=== PATIENT | female | born 1960 | race Caucasian/White ===

== ENCOUNTER 2019-03-22 10:04 | Outpatient (REF) | payer OTHER, SELFPAY ==
[2019-03-22 13:01] LABS: ALT 19 U/L (12-78); AST 23 U/L (15-37); Albumin 3.8 g/dL (3.4-5.0); Alkaline Phosphatase 87 U/L (46-116); Anion Gap 11.4 mmol/L (3-11); BUN 15 mg/dL (7-18); Bilirubin, Total 0.3 mg/dL (0.2-1.0); C-Reactive Protein 0.24 mg/dL (0.0-0.3); CO2 25.6 mmol/L (21.0-32.0); CREATININE 0.81 mg/dL (0.55-1.02); Chloride 106 mmol/L (98-107); Glucose 90 mg/dL (70-100); Potassium 4.2 mmol/L (3.5-5.1); Sodium 143 mmol/L (136-145); TSH (W/Ref FT4) 9.73 uIU/mL (0.358-3.74); Total Protein 7.2 g/dL (6.4-8.2)
[2019-03-22 13:20] LABS: FREE T4 0.82 ng/dL (0.76-1.46)
[2019-03-22 13:54] LABS: ESR 20 MM/HR (0-30)
[2019-03-22 14:22] LABS: Calculated LDL 164; Cholesterol 278 mg/dL (50-200); HDL Cholesterol 58 mg/dL (40-60); Triglyceride 280 mg/dL (30-150)
[2019-03-23 09:29] LABS: Rheumatoid Factor 14 IU/mL (<12.5)
[2019-03-23 14:58] LABS: ANA Interpretation Negative (NEGAT)
== END 2019-03-22 10:24 ==
LOC: NCHCN 10:04
PROVIDERS: PCP Nurse Practitioner; Visit Provider Nurse Practitioner
DX: M25.50 Pain in unspecified joint (principal); Z13.29 Encounter for screening for other suspected endocrine disorder; Z13.89 Encounter for screening for other disorder
CPT/HCPCS: 80053; 80061; 83721; 85652; 84439; 84443; 86038; 86140; 86431

== ENCOUNTER 2019-04-01 01:43 | Outpatient (CLI) | payer OTHER, SELFPAY ==
--- NOTE | 2019-04-01 14:00 | DI.MAMMO_ITS ---
SYMPTOMS/DIAGNOSIS: SCREENING, Z12.39 BILATERAL SCREENING MAMMOGRAM: Mammograms were interpreted according to the usual protocol including computer analysis with CAD system, tomosynthesis and C view imaging. The patient had previous exams in 2007, which are no longer available for comparison. The breasts are composed of scattered fibroglandular densities, breast density category B. No suspicious masses or suspicious microcalcifications are seen. IMPRESSION: Category 1, negative mammogram. Yearly screening mammography is recommended. [facility] ASSESSMENT OF FINDINGS: Negative. Category 1. Patient will receive a letter notifying them of these results. BI-RADS category B. There are scattered areas of fibroglandular density.
--- NOTE | 2019-04-01 14:00 | DI.RAD_ITS ---
SYMPTOMS/DIAGNOSIS: NUMBNESS AND TINGLING, LEFT ARM, R20.2 CERVICAL SPINE: There is no evidence of fracture or subluxation. There is moderate narrowing of the C5-6 disc space and small endplate osteophytes. The remaining disc spaces are well maintained. There may be slight neural foraminal narrowing at C5-6. IMPRESSION: Degenerative disc changes at C5-6.
== END 2019-04-01 02:03 ==
PROVIDERS: PCP Nurse Practitioner; Visit Provider Nurse Practitioner
DX: Z12.31 Encounter for screening mammogram for malignant neoplasm of breast (principal); R20.0 Anesthesia of skin; M50.322 Other cervical disc degeneration at C5-C6 level
CPT/HCPCS: 77063; 77067; 72050

== ENCOUNTER 2020-04-02 21:51 | Outpatient (REF) | payer OTHER, SELFPAY ==
[2020-04-02 19:09] LABS: ALT 14 U/L (14-59); AST 19 U/L (15-37); Albumin 3.8 g/dL (3.4-5.0); Alkaline Phosphatase 88 U/L (46-116); Anion Gap 10.4 mmol/L (3-11); BUN 18 mg/dL (7-18); Bilirubin, Total 0.2 mg/dL (0.2-1.0); CO2 24.6 mmol/L (21.0-32.0); CREATININE 1.02 mg/dL (0.55-1.02); Calcium 8.8 mg/dL (8.5-10.1); Chloride 105 mmol/L (98-107); Cholesterol 264 mg/dL (<200); Estimated GFR 55.47 (mL/min/1.73m2); Glucose 95 mg/dL (74-106); HDL Cholesterol 40 mg/dL (40-60); Potassium 4.3 mmol/L (3.5-5.1); Sodium 140 mmol/L (136-145); TSH (W/Ref FT4) 15.42 uIU/mL (0.36-3.74); Triglyceride 531 mg/dL (<150)
[2020-04-02 19:29] LABS: LDL CHOLESTEROL 138 mg/dL (<100)
[2020-04-02 19:58] LABS: FREE T4 0.93 ng/dL (0.76-1.46)
== END 2020-04-02 22:11 ==
LOC: NCHCN 21:51
PROVIDERS: PCP Nurse Practitioner; Visit Provider Nurse Practitioner
DX: E03.9 Hypothyroidism, unspecified (principal); E78.5 Hyperlipidemia, unspecified; Z68.32 Body mass index [BMI] 32.0-32.9, adult
CPT/HCPCS: 80053; 80061; 83721; 84439; 84443

== ENCOUNTER 2020-11-10 17:26 | Inpatient (IN) | payer OTHER, SELFPAY ==
[2020-11-10 17:30] VITALS: BP 132/76; PULSE 92; RESP 18; TEMP 36.5; O2SAT 98
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
[2020-11-10 18:04] LABS: Abs Immature Grans 0.05 10^3/uL (0.0-0.06); Absolute Basophil Count 0.06 10^3/uL (0.0-0.2); Absolute Eosinophil Count 0.09 10^3/uL (0.0-0.7); Absolute Lymphocyte Count 2.33 10^3/uL (1.2-3.4); Absolute Monocyte Count 1.12 10^3/uL (0.1-0.8); Absolute Neutrophil Count 7.99 10^3/uL (1.2-6.7); Basophils % 0.5; Eosinophils % 0.8; HCT 38.4 % (36.0-46.0); HGB 12.7 g/dL (11.2-15.7); Immature Grans % 0.4; MCH 29.1 pg (27.0-33.0); MCHC 33.1 % (32.0-36.0); MCV 87.9 fL (80-95); MPV 10.1 fL (8.0-11.0); Monocytes % 9.6; Neutrophils % 68.7; Nucleated RBC 0 %; Platelet Count 264 10^3/uL (130-400); RBC 4.37 10^6/uL (3.93-5.22); RDW 14.4 % (11.7-14.6); RDW-SD 46.5 fL; WBC 11.63 10^3/uL (4.4-10.8)
[2020-11-10 18:09] LABS: Bilirubin Negative (Negative); Blood Negative (Negative); Clarity Clear (Clear); Glucose Negative (Negative); Ketones Negative (Negative); Leukocyte Esterase Negative (Negative); Nitrite Negative (Negative); Specific Gravity 1.025 (1.005-1.025); Urobilinogen 0.2 EU/dL (Up TO 0.2); pH 6.5 (5-8)
--- NOTE | 2020-11-10 18:15 | DI.CT_ITS ---
EXAM: CT ABDOMEN PELVIS W CLINICAL HISTORY: llq abd pain and tenderness. TECHNIQUE: Imaging Protocol: Axial computed tomography images with coronal and sagittal reformatted images were created and reviewed CONTRAST MATERIAL: Intravenous: Omnipaque 100cc Oral: None COMPARISON: CT ABD PELVIS WITH CONTRAST from 05/19/2012 FINDINGS: VISUALIZED LUNG BASES: No nodules nor pleural effusions evident. ABDOMEN: There is no ascites. LIVER: There are no obvious focal hepatic lesions evident . GALLBLADDER/BILIARY: No obvious gallbladder pathology. CBD is not dilated. PANCREAS: No evidence of pancreatic mass nor dilatation of the pancreatic duct. SPLEEN: Spleen is not enlarged. No obvious intrasplenic lesions. Splenic and portal veins are paten t. ADRENALS: There are no significant adrenal masses. KIDNEYS:No cysts evident. No solid renal masses. No calculi nor hydronephrosis.. ABDOMINAL AORTA: Abdominal aorta is not enlarged and there is no jvdwshslbiwyeiv-arpc-izlcmz adenopat hy. ABDOMINAL WALL/GI: No evidence of significant anterior abdominal wall hernia. No bowel obstruction. PELVIS: GI: No evidence of appendicitis.There is sigmoid diverticuli and there is significant inflammatory ch melly around the sigmoid consistent with acute diverticulitis with focal perforation with high risk fo r abscess development.There is no free fluid in the dependent aspect of the pelvis at this time. LYMPH NODES: There is no intrapelvic nor inguinal adenopathy. REPRODUCTIVE: Uterus is surgically absent. No abnormal ovarian masses. URINARY BLADDER: No gas evident within the urinary bladder. OSSEOUS: No significant osseous lesions. IMPRESSION: 1. The main finding here is severe acute sigmoid diverticulitis with focal perforation. High risk fo r developing abscess. There is no free fluid in the dependent aspect of the pelvis at this time. Th ere is no gas in the urinary bladder. No gas in the portal venous system nor evidence of abscess in the liver. Report called by myself to ER provider 11/10/2020 7:15 p.m. RADIATION DOSE DELIVERED: 940.3mGy.cm Total DLP DATA REPOSITORY: All CT scans at this facility are submitted to the National Radiology Data Registry (NRDR) Dose Index Registry (DIR) with the [employer] (ACR). RADIATION OPTIMIZATION: All CT scans at this facility use at least one of these dose optimization te chniques: automated exposure control; mA and/or kV adjustment per patient size (includes targeted exa ms where dose is matched to clinical indication); or iterative reconstruction.
[2020-11-10 18:19] LABS: ALT 51 U/L (14-59); AST 63 U/L (15-37); Albumin 3.4 g/dL (3.4-5.0); Alkaline Phosphatase 148 U/L (46-116); Anion Gap 10.3 mmol/L (3-11); BUN 17 mg/dL (7-18); Bilirubin, Total 0.3 mg/dL (0.2-1.0); CO2 25.7 mmol/L (21.0-32.0); CREATININE 0.9 mg/dL (0.55-1.02); Calcium 8.9 mg/dL (8.5-10.1); Chloride 104 mmol/L (98-107); Glucose 97 mg/dL (74-106); Lipase 161 U/L (73-393); Potassium 3.8 mmol/L (3.5-5.1); Sodium 140 mmol/L (136-145); Total Protein 7.7 g/dL (6.4-8.2)
[2020-11-10] MEDS: Omnipaque 350 MG/ML 100 ML BTL IJ (18:57)
--- NOTE | 2020-11-10 19:25 | DI.VRAD_ITS ---
Addendum created by Shanique Azar MD on 11/10/2020 7:25:42 PM EST: I discussed case findings with NATHANIEL NEWTON 11/10/2020 7:25 PM EST. Initial report created on 11/10/2020 7:25:20 PM EST: PROCEDURE INFORMATION: Exam: CT Abdomen And Pelvis With Contrast Exam date and time: 11/10/2020 6:22 PM Age: 60 years old Clinical indication: Other: Llq pain TECHNIQUE: Imaging protocol: Computed tomography of the abdomen and pelvis with contrast. Radiation optimization: All CT scans at this facility use at least one of these dose optimization techniques: automated exposure control; mA and/or kV adjustment per patient size (includes targeted exams where dose is matched to clinical indication); or iterative reconstruction. Contrast material: OMNIPAQUE 350; Contrast volume: 100 ml; Contrast route: INTRAVENOUS (IV); COMPARISON: No relevant prior studies available. FINDINGS: Liver: Normal. No mass. Gallbladder and bile ducts: Normal. No calcified stones. No ductal dilation. Pancreas: Normal. No ductal dilation. Spleen: Normal. No splenomegaly. Adrenal glands: Normal. No mass. Kidneys and ureters: Normal. No hydronephrosis. Stomach and bowel: Diverticulosis noted. There is distal sigmoid and rectosigmoid wall edema. There is a thick-walled diverticulum with small amounts of adjacent extraluminal air in the medial sigmoid mesocolon with moderate associated inflammatory change. No drainable collection identified. Appendix: No evidence of appendicitis. Intraperitoneal space: Unremarkable. No free air. No significant fluid collection. Vasculature: Unremarkable. No abdominal aortic aneurysm. Lymph nodes: Unremarkable. No enlarged lymph nodes. Urinary bladder: Unremarkable as visualized. Reproductive: Status post hysterectomy. Bones/joints: Lumbar spondylosis. Soft tissues: Unremarkable. IMPRESSION: Acute distal sigmoid diverticulitis with evidence for contained perforation. Dictated and Authenticated by: Shanique Azar MD. Ordering:JOSLYN Lopez MD
[2020-11-10] MEDS: metroNIDAZOLE 500 MG/100 ML BAG 100 MG IVPB (19:57)
[2020-11-10] MEDS: levoFLOXacin 750 MG/150 ML BAG 100 MG IVPB (19:57)
[2020-11-10] MEDS: Ketorolac 30 MG/ML VIAL IVP (19:59)
[2020-11-10 20:45] VITALS: BP 132/76; PULSE 92; RESP 18; TEMP 36.5; O2SAT 98
[2020-11-10 23:00] VITALS: BP 135/78; PULSE 74; RESP 16; TEMP 36.7; O2SAT 99
[2020-11-10] MEDS: Lactated Ringers 1,000 ML 125 ML IV (23:00)
[2020-11-10] MEDS: ACETAMINOPHEN 1,000 MG/100 ML BTL 400 MG IVPB (23:45)
[2020-11-10 23:47] VITALS: BP 135/78; PULSE 74; RESP 16; TEMP 36.7; O2SAT 99
[2020-11-11 03:55] VITALS: BP 125/71; PULSE 60; RESP 17; TEMP 36; O2SAT 99
[2020-11-11] MEDS: ACETAMINOPHEN 1,000 MG/100 ML BTL 400 MG IVPB ×2 (06:55→13:49)
[2020-11-11 08:20] VITALS: BP 106/61; PULSE 65; RESP 17; TEMP 35.9; O2SAT 95
--- NOTE | 2020-11-11 09:43 | W.PM.HP.N ---
Date of service: 11/11/20 Time of Service: 09:15 Assessment and Plan Assessment and plan (1) Diverticulitis of large intestine with perforation: Status: Acute Assessment and plan: Mrs. Kitchen is a pleasant 60 year old female with diverticulitis and contained perforation in the sigmoid colon. She is felling better today after being NPO and starting antibiotics. Explained diverticulitis to the patient as well as the perforation. As the perforation is contained I am hopeful that she will do OK. There is a chance that she will develop and anscess and will need a percutaneous drainage procedure done. There is also still a chance that she will not get better and that she will need a sigmoid colectomy with ostomy placement. Her questions were answered to her satisfaction. Continue with NPO except for sips of water. IV Levaquin and Falgyl Ambulate SCD's when in bed ISP while awake Lovenox for prophilaxis as well as Pepcid I spent 45 minutes in reviewing the record, seeing the patient and documenting in the medical record. Qualifiers: Diverticulitis bleeding: without bleeding Qualified Code(s): K57.20 - Diverticulitis of large intestine with perforation and abscess without bleeding History of Present Illness History of Present Illness Chief Complaint: diverticulitis with perforation Consults Consult date: 11/10/20 Requesting physician: John Jones Narrative: 60-year-old female with history of diverticulosis presented to the ED with chief complaint of left lower quadrant abdominal pain. Patient dates for the past 5 days she has had pain that initially started in her left flank and subsequently radiated to left lower abdomen. Pain was moderate and worse on palpation. She has no associated hematuria or dysuria. She did recently have some mucus in her stool. No bright red blood per rectum or melena. There is no nausea vomiting. She has had small soft bowel movements. She feels like it is more difficult to have a BM. She is passing flatus. CT scan was reviewed by myself. ABDOMEN: There is no ascites. LIVER: There are no obvious focal hepatic lesions evident . GALLBLADDER/BILIARY: No obvious gallbladder pathology. CBD is not dilated. PANCREAS: No evidence of pancreatic mass nor dilatation of the pancreatic duct. SPLEEN: Spleen is not enlarged. No obvious intrasplenic lesions. Splenic and portal veins are patent. ADRENALS: There are no significant adrenal masses. KIDNEYS:No cysts evident. No solid renal masses. No calculi nor hydronephrosis.. ABDOMINAL AORTA: Abdominal aorta is not enlarged and there is no mgjvlsciatltjqe-hjpk-mweekr adenopathy. ABDOMINAL WALL/GI: No evidence of significant anterior abdominal wall hernia. No bowel obstruction. PELVIS: GI: No evidence of appendicitis.There is sigmoid diverticuli and there is significant inflammatory change around the sigmoid consistent with acute diverticulitis with focal perforation with high risk for abscess development.There is no free fluid in the dependent aspect of the pelvis at this time. LYMPH NODES: There is no intrapelvic nor inguinal adenopathy. REPRODUCTIVE: Uterus is surgically absent. No abnormal ovarian masses. URINARY BLADDER: No gas evident within the urinary bladder. OSSEOUS: No significant osseous lesions. IMPRESSION: 1. The main finding here is severe acute sigmoid diverticulitis with focal perforation. High risk for developing abscess. There is no free fluid in the dependent aspect of the pelvis at this time. There is no gas in the urinary bladder. No gas in the portal venous system nor evidence of abscess in the liver. WBC count in the ER last night was just above 13 She was admitted last night for bowel rest and IV antibiotics. She was started on Levaquin and Flagyl. This morning she feels better. No Bm yet Review of Systems Constitutional Constitutional: Denies fatigue, Denies fever(s), Denies headache(s) and Denies weight loss Eyes Eyes: Denies change in vision ENT Ears, Nose, Mouth, and Throat: Denies dysphagia and Denies headache(s) Cardiovascular Cardiovascular: Denies chest pain, Denies chest pain at rest, Denies rapid heart rate, Denies irregular heart rhythm, Denies radiating jaw, neck or arm pain and Denies dyspnea Respiratory Respiratory: Denies cough and Denies dyspnea Gastrointestinal Gastrointestinal: Reports as per HPI and Denies dysphagia Genitourinary Genitourinary: Reports dysuria Musculoskeletal Musculoskeletal: Reports system reviewed and no additional complaints, except as documented Integumentary/Breasts Skin/Breast: Reports system reviewed and no additional complaints, except as documented Neurologic Neurologic: Reports system reviewed and no additional complaints, except as documented and Denies headache(s) Psychiatric Psychiatric: Reports system reviewed and no additional complaints, except as documented Endocrine Endocrine: Reports system reviewed and no additional complaints, except as documented and Denies fatigue Hematologic/Lymphatic Hematologic/Lymphatic: Reports system reviewed and no additional complaints, except as documented [facility] Medical History (Updated 11/11/20 @ 14:39 by Michaela Gracia MD) Diverticulosis Gastritis Heart burn Hypothyroidism Surgical History (Updated 11/11/20 @ 14:34 by Michaela Gracia MD) Arthroplasty of knee H/O esophagogastroduodenoscopy (~09/18/14) S/P colonoscopy (~09/18/14) [place]- Diverticulosis Social History Smoking/Tobacco Use Status: Never Smoking risk assessment performed?: Yes Alcohol Intake: current Alcohol Intake frequency: holidays/special occasions only Drug use: Never Substance use type: does not use Do you feel safe at home: Yes Do you feel safe in your relationship?: Yes Meds Home Medications and Allergies Home Medications Medication Instructions Recorded Confirmed Type clobetasol 0.05 applic TOPICAL PRN 11/10/20 History cyclobenzaprine 10 mg PO DAILY PRN 11/10/20 11/10/20 History levothyroxine 125 mcg PO DAILY 11/10/20 11/10/20 History meclizine 25 mg PO DAILY PRN 11/10/20 11/10/20 History Allergies Allergy/AdvReac Type Severity Reaction Status Date / Time amoxicillin [Amoxicillin] Allergy Intermediate Skin Rash Unverified 11/10/20 17:35 pantoprazole sodium Allergy Intermediate Dizziness/L Unverified 11/10/20 17:35 [From Protonix] ightheade sulfamethoxazole Allergy Intermediate Skin Rash Unverified 11/10/20 17:35 [From Bactrim] trimethoprim [From Bactrim] Allergy Intermediate Skin Rash Unverified 11/10/20 17:35 latex AdvReac local rash Unverified 11/10/20 17:35 Exam Const General: cooperative, comfortable and no acute distress Orientation: alert and oriented x3 HENMT Head: normocephalic and atraumatic Resp Effort & Inspection: normal respiratory effort Auscultation: clear to auscultation bilaterally Cardio Rate: regular rate Rhythm: regular rhythm Heart Sounds: no gallops, no murmurs and no rubs GI Palpation: soft, no hepatosplenomegaly and tender (mild suprapubic, no guarding or rebound) Auscultation: normal bowel sounds Results Labs Result diagrams: 11/10/20 17:45 11/10/20 17:45 Labs: Laboratory Results - last 24 hr 11/10/20 11/10/20 11/10/20 17:45 17:45 18:04 WBC 11.63 H RBC 4.37 Hgb 12.7 Hct 38.4 MCV 87.9 MCH 29.1 MCHC 33.1 RDW 14.4 Plt Count 264 MPV 10.1 Immature Gran % 0.4 Neutrophils % 68.7 Lymphocytes % 20.0 Monocytes % 9.6 Eosinophils % 0.8 Basophils % 0.5 Nucleated RBC % 0 Absolute Neutrophils 7.99 H Absolute Lymphocytes 2.33 Absolute Monocytes 1.12 H Absolute Eosinophils 0.09 Absolute Basophils 0.06 Sodium 140 Potassium 3.8 Chloride 104 Carbon Dioxide 25.7 Anion Gap 10.3 BUN 17 Creatinine 0.9 Estimated GFR/1.73 m2 >= 60.00 Glucose 97 Calcium 8.9 Total Bilirubin 0.3 AST 63 H ALT 51 Alkaline Phosphatase 148 H Total Protein 7.7 Albumin 3.4 Lipase 161 Urine Color Yellow Urine Clarity Clear Urine pH 6.5 Ur Specific [place] 1.025 Urine Protein Negative Urine Ketones Negative Urine Blood Negative Urine Nitrite Negative Urine Bilirubin Negative Urine Urobilinogen 0.2 Ur Leukocyte Esterase Negative Urine Glucose Negative Last Vital Signs Temp 96.6 F L 11/11/20 08:20 Pulse 65 11/11/20 08:20 Resp 17 11/11/20 08:20 BP 106/61 11/11/20 08:20 Pulse Ox 95 11/11/20 08:20 COVID-19 Screening Have you, or household traveled for leisure in last 14 days?: No Had IN PERSON contact w/suspected or confirmed C-19 person: No
[2020-11-11] MEDS: Lactated Ringers 1,000 ML 125 ML IV ×2 (10:12→21:24)
[2020-11-11] MEDS: metroNIDAZOLE 500 MG/100 ML BAG 100 MG IVPB ×2 (10:58→17:49)
[2020-11-11 11:13] VITALS: BP 123/75; PULSE 64; RESP 16; TEMP 36.7; O2SAT 97
[2020-11-11] MEDS: levoFLOXacin 500 MG/100 ML BAG 100 MG IVPB (12:15)
[2020-11-11] MEDS: Levothyroxine 125 MCG TAB PO (12:46)
[2020-11-11 15:38] VITALS: BP 121/66; PULSE 68; RESP 17; TEMP 36.4; O2SAT 98
[2020-11-11] MEDS: Enoxaparin 30 MG/0.3 ML SYR SC (15:46)
--- NOTE | 2020-11-11 19:18 | PDOC.CMIN ---
- If Service Date Differs Date of service: 11/11/20 Time of Service: 19:29 Care Management Initial Assess REASON FOR HOSPITALIZATION:: Sigmoid diverticulitis with perforation PAST MEDICAL HISTORY/PAST SURGICAL HISTORY:: Diverticulosis, gastritis, heart burn, hypothyroidism, arthroplasty of knee, EGD, colonoscopy, partial hysterectomy PREVIOUS FUNCTIONAL STATUS/SOCIAL/FAMILY SUPPORTS:: Maya resides with her , Amadou and their grand-daughter in [place], [place]. She is independent at baseline in the community works at [employer]. CURRENT FUNCTIONAL STATUS:: Mrs. Kitchen is a pleasant 60 year old female with diverticulitis and contained perforation in the sigmoid colon. She is feeling better today after being NPO and starting antibiotics, per MD. ADVANCE DIRECTIVES:: None on file at [facility]. Has patient been provided with info about the portal/API?: Yes Did the patient sign up for the portal?: Yes (Previously) CODE STATUS:: Full Code INSURANCE COVERAGE / FINANCIAL ISSUES:: [place] CURRENT HOME/COMMUNITY SERVICES/EQUIPMENT:: None, currently. PRIMARY CARE PHYSICIAN:: Sierra Forbes POTENTIAL DISCHARGE NEEDS:: PCP follow up. PATIENT/FAMILY EDUCATION NEEDS:: Review of discharge instructions, discuss Ask Me [employer]. ANTICIPATED BARRIERS TO DISCHARGE:: None identified. TRANSPORTATION:: Via private vehicle with family. PLAN:: shares concerns for abscess development or need for sigmoid colectomy with ostomy placement. At this time Maya is being treated conservatively with IV ABX and remains NPO at this time. CM continues to follow.
[2020-11-11 23:39] VITALS: BP 127/76; PULSE 72; RESP 18; TEMP 36.1; O2SAT 97
[2020-11-12] MEDS: metroNIDAZOLE 500 MG/100 ML BAG 100 MG IVPB ×3 (02:08→17:43)
[2020-11-12] MEDS: Lactated Ringers 1,000 ML 125 ML IV ×2 (05:53→17:43)
[2020-11-12] MEDS: Levothyroxine 125 MCG TAB PO (05:54)
[2020-11-12 07:19] LABS: Abs Immature Grans 0.02 10^3/uL (0.0-0.06); Absolute Basophil Count 0.02 10^3/uL (0.0-0.2); Absolute Eosinophil Count 0.07 10^3/uL (0.0-0.7); Absolute Lymphocyte Count 1.79 10^3/uL (1.2-3.4); Absolute Monocyte Count 0.55 10^3/uL (0.1-0.8); Absolute Neutrophil Count 4.02 10^3/uL (1.2-6.7); Basophils % 0.3; Eosinophils % 1.1; HCT 36.8 % (36.0-46.0); HGB 11.9 g/dL (11.2-15.7); Immature Grans % 0.3; Lymphocytes % 27.7; MCH 28.9 pg (27.0-33.0); MCHC 32.3 % (32.0-36.0); MCV 89.3 fL (80-95); MPV 9.7 fL (8.0-11.0); Monocytes % 8.5; Neutrophils % 62.1; Nucleated RBC 0 %; Platelet Count 267 10^3/uL (130-400); RBC 4.12 10^6/uL (3.93-5.22); RDW 14.1 % (11.7-14.6); RDW-SD 46.4 fL; WBC 6.47 10^3/uL (4.4-10.8)
[2020-11-12 07:32] LABS: Anion Gap 6.9 mmol/L (3-11); BUN 11 mg/dL (7-18); CO2 27.1 mmol/L (21.0-32.0); CREATININE 0.9 mg/dL (0.55-1.02); Calcium 8.6 mg/dL (8.5-10.1); Chloride 105 mmol/L (98-107); Glucose 93 mg/dL (74-106); Potassium 3.7 mmol/L (3.5-5.1); Sodium 139 mmol/L (136-145)
[2020-11-12 08:30] VITALS: BP 147/80; PULSE 67; RESP 20; TEMP 36.6; O2SAT 97
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
[2020-11-12] MEDS: Normal Saline Flush 10 ML SYR IVP (09:54)
[2020-11-12] MEDS: levoFLOXacin 500 MG/100 ML BAG 100 MG IVPB (12:07)
--- NOTE | 2020-11-12 12:52 | W.NUTRFU ---
Date of service: 11/12/20 Time of Service: 12:52 Nutritional Follow up NOTE: 60 year old female admitted with diverticulitis, tolerating clear liquid diet. BMI indicates mild obesity. Does not appear at nutritional risk. Will continue to follow. Time Spent in Nutritional Counseling and Treatment: 0
--- NOTE | 2020-11-12 13:16 | DSE_ITS ---
Documented by User: NNEKA Webb 11/12/20 13:21 Date of service: 11/12/20 Time of Service: 13:16 DS: Diagnosis Discharge Diagnosis (1) Diverticulitis of large intestine with perforation: Status: Acute Discharge Plan Disposition Patient Disposition: HOME Condition: Improving Discharge Details Reason For Visit: SIGMOID DIVERTICULITIS WITH PERFORATION Admit Date/Time: 11/10/20 19:24 Admit Provider: Michaela Gracia Attending Provider: Michaela Gracia Primary Care Provider: Sierra Forbes Hospital Course Hospital Course: 60 y/o female presented to the ER with complaints of LLQ pain and tenderness. CT scan showed diverticulitis with small localized and contained perforation without abscess. She was admitted to the surgical service for bowel rest, IV antibiotics and pain control. After 24 hours of antibiotics, she had significant improvement in her abdominal discomfort. By 36 hours tolerated progression to a soft diet, continues without abdominal pain. WBC count returned to normal. She denies any fevers or chills. She will be d/c home on PO Levaquin and Flagyl. She will need to follow up with Surgical Services in 7-[address] Gracia Home Meds and New Rx's Prescriptions: New levofloxacin 500 mg tablet 500 mg PO DAILY Qty: 7 RF: 0 metronidazole [Flagyl] 500 mg tablet 500 mg PO Q8H 7 Days Qty: 21 RF: 0 Bio-K plus 50 billion cell capsule,delayed release(DR/EC) 1 cap PO DAILY Qty: 30 RF: 0 Continued cyclobenzaprine 10 mg tablet 10 mg PO DAILY PRNRF: 0 clobetasol 0.05 % cream 0.05 applic TOPICAL PRNRF: 0 meclizine 25 mg tablet 25 mg PO DAILY PRNRF: 0 levothyroxine 125 mcg tablet 125 mcg PO DAILY RF: 0 Discharge Instructions Instructions: Diverticulitis (DC), Diverticulitis Diet (DC) Additional Instructions: -Follow-up with Dr. Gracia 11/23 in clinic -low fiber diet -no straining to move bowels - if you do not move your bowels daily take a dose of OTC milk of magnesia -It is ok to shower. No bathe, soaking, swimming or hot tubs You may find that your appetite is smaller. Eat 3-6 small meals throughout the day. It is important to drink lots of water after surgery, 6-10 glasses a day. -If you were given an incentive spirometry (breathing check examiner?), continue to do this 10x/hour while awake. -We do want you up walking, at least 5-6 times per day. This is very important to prevent pneumonia and blood clots. You can climb stairs, take them slowly. -No lifting over 5 pounds. This is very important to avoid developing a hernia in your incision. -You may find that you are very tired after surgery- this is normal. -please do not smoke for a minimum of 72 hours after surgery. What is a gastrointestinal soft diet? This diet is soft in texture, low in fiber, and easy to digest. The goal is to decrease) in the bowel that may cause and discomfort. This diet is often used after abdominal surgery or as a transitional diet after flares. Meats & Meat Substitutes ? Foods Allowed: Chicken, turkey, fish, tender cuts of beef and pork, ground meats, eggs, creamy nut butters, tofu, skinless hot dogs, sausage patties without whole spices ? Foods to Avoid : Tough, fibrous meats with gristle, meat with casings (hot dogs, sausage, kielbasa), lunch meats with whole spices, shellfish, beans, chunky peanut butter, nuts Fruits and Juices ? Foods Allowed: Fruit juices without pulp, banana, avocado, applesauce, canned peaches and pears, cooked fruit without the skin/seeds ? Foods to Avoid: Juices with pulp, fresh fruit (except banana and avocado), dried fruits, canned fruit cocktail and pineapple, coconut, frozen/thawed berries Vegetables ? Foods Allowed: Well-cooked or canned vegetables, potatoes without skin, tomato sauces, vegetable juice ? Foods to Avoid: Raw vegetables, all corn, all mushrooms, stewed tomatoes, potato skins, stir-valdez vegetables, sauerkraut, pickles, olives, all dried beans, peas, and legumes Cereals and Grains ? Foods Allowed: Low- fiber dry or cooked cereals (less than 2 grams fiber per serving), white rice, pasta, macaroni, or noodles ? Foods to Avoid: Cereals with nuts, berries, dried fruits, whole grain cereals, bran cereals, granola, brown or wild rice, whole grain pasta Breads and Crackers ? Foods Allowed: White/refined breads and rolls, plain bagel, toast, plain crackers, julieth crackers ? Foods to Avoid: Whole grain breads- including white whole grain; bread/ rolls with raisins, nuts or seeds, multi-grain crackers Dairy ? Foods Allowed: Milk, cheese, yogurt, milkshakes, pudding, ice cream, cottage cheese, sherbet ; lactose free or low lactose versions if lactose intolerant ? Foods to Avoid: Dairy product mixed with fresh fruit (except banana), berries, nuts or seeds Desserts ? Foods Allowed: Plain cake, pudding, custard, ice cream, sherbet, gelatin, fruit whips ? Foods to Avoid: Any dessert that contains nuts, dried fruits, coconut, or fruits with seeds Herbs and Spices ? Foods Allowed: All ground spices or herbs, salt ? Foods to Avoid: Whole spices such as peppercorns, whole cloves, anise seeds, celery seeds, kiet, juanita seeds, and fresh herbs Snacks/Other Foods ? Foods Allowed: Sugar, honey, jelly, mayonnaise, mustard, soy sauce, oil, butter, margarine, marshmallows, cookies without dried fruits or nuts, snack chips and pretzels using refined flours ? Foods to Avoid: Carbonated beverages, jams or jellies with seeds, popcorn After several weeks, slowly start to reintroduce the ?Foods to Avoid? back into your diet unless your doctor has told you otherwise. Try a small portion of one of these foods each day. If it does not bother you within 24 hours, it can be added to your diet. Continue to add new foods in this way. Some people may continue to have food sensitivities and may need to continue to avoid certain foods. If you cannot tolerate a food, avoid that food for a few weeks before you try it again. Guidelines when eating 1. Avoid any food that you cannot tolerate or that causes gas, bloating, or stomach pain. 2. Make time for your meals. Do not eat while you are in a hurry. Cut your food into small pieces. Chew each bite to a mashed potato consistency. Do not eat when you cannot concentrate on chewing well. 3. Drink at least 6-8 cups of fluid per day Fluids include: water, coffee, tea, juice, milk, popsicles, soups, gelatin, pudding, ice cream, sherbet, and yogurt. In addition, choose caffeine-free beverages more often, especially if you are having diarrhea. 4. A daily multivitamin may be recommended if diet is limited in amounts or variety of foods. Do not take any herbal supplements without first checking with your doctor. Stand Alone Forms: Nursing Discharge Form Activity:: see above Equipment/Supplies:: No Equipment Needed Diet:: Soft Diet Discharge Orders Discharge Orders: Discharge Order (Routine); Ordered 11/13/20 Ordered By: Mariah Palmer DS: Data Vitals/I&O Vitals and I&O: Vital Signs Temperature 36.6 C 11/12/20 08:30 Temperature Source Tympanic 11/12/20 08:30 Pulse 67 11/12/20 08:30 Pulse Rhythm Regular 11/11/20 23:45 Respiratory Rate 20 11/12/20 08:30 Respiratory Effort 11/11/20 23:45 Respiratory Depth Normal 11/11/20 23:45 Respiratory Pattern Normal 11/11/20 23:45 Blood Pressure 147/80 H 11/12/20 08:30 Blood Pressure Position Sitting 11/10/20 17:30 Pulse Oximetry 97 11/12/20 08:30 Oxygen Delivery Method Room Air 11/12/20 08:30 Oxygen Flow Rate 0 11/12/20 08:30 Pain Level 1 11/12/20 08:30 Intake & Output 11/11/20 11/12/20 11/12/20 18:59 06:59 18:59 Intake Total 2412.5 / 4200.0 1787.5 / 4200.0 624.583 / 624.583 Output Total 1300 / 2800 1500 / 2800 900 / 900 Balance 1112.5 / 1400.0 287.5 / 1400.0 -275.417 / -275.417 Intake: IV 2412.5 / 3600.0 1187.5 / 3600.0 364.583 / 364.583 Oral 600 / 600 260 / 260 Output: Urine 1300 / 2800 1500 / 2800 900 / 900 Other: Urine Color Yellow Yellow Yellow Urine Appearance Clear Cloudy Clear Urine Odor Normal Normal Stool Size Small Stool Characteristics Formed Voiding Methods Toilet Toilet Toilet Data Completed and Pending Labs on day of discharge: Labs from last 24 hours 11/12/20 11/12/20 06:35 06:35 WBC 6.47 RBC 4.12 Hgb 11.9 Hct 36.8 MCV 89.3 MCH 28.9 MCHC 32.3 RDW 14.1 Plt Count 267 MPV 9.7 Immature Gran % 0.3 Neutrophils % 62.1 Lymphocytes % 27.7 Monocytes % 8.5 Eosinophils % 1.1 Basophils % 0.3 Nucleated RBC % 0 Absolute Neutrophils 4.02 Absolute Lymphocytes 1.79 Absolute Monocytes 0.55 Absolute Eosinophils 0.07 Absolute Basophils 0.02 Sodium 139 Potassium 3.7 Chloride 105 Carbon Dioxide 27.1 Anion Gap 6.9 BUN 11 D Creatinine 0.9 Estimated GFR/1.73 m2 >= 60.00 Glucose 93 Calcium 8.6 PFSH Medical History (Updated 11/11/20 @ 14:39 by Michaela Gracia MD) Diverticulosis Gastritis Heart burn Hypothyroidism Surgical History (Updated 11/11/20 @ 14:34 by Michaela Gracia MD) Arthroplasty of knee H/O esophagogastroduodenoscopy (~09/18/14) S/P colonoscopy (~09/18/14) AK- Diverticulosis Social History Smoking/Tobacco Use Status: Never Smoking risk assessment performed?: Yes Alcohol Intake: current Alcohol Intake frequency: holidays/special occasions only Drug use: Never Substance use type: does not use Do you feel safe at home: Yes Do you feel safe in your relationship?: Yes Documented by User: Mariah Palmer DO 11/13/20 16:04 Discharge Plan Disposition Patient Disposition: HOME Condition: Improving Discharge Details Reason For Visit: SIGMOID DIVERTICULITIS WITH PERFORATION Admit Date/Time: 11/10/20 19:24 Admit Provider: Michaela Gracia Attending Provider: Michaela Gracia Primary Care Provider: Sierra Forbes Hospital Course Hospital Course: 60 y/o female presented to the ER with complaints of LLQ pain and tenderness. CT scan showed diverticulitis with small localized and contained perforation without abscess. She was admitted to the surgical service for bowel rest, IV antibiotics and pain control. After 24 hours of antibiotics, she had significant improvement in her abdominal discomfort. By 36 hours tolerated progression to a soft diet, continues without abdominal pain. WBC count returned to normal. She denies any fevers or chills. She will be d/c home on PO Levaquin and Flagyl. She will need to follow up with Surgical Services in 7-[address] Gracia Home Meds and New Rx's Prescriptions: New levofloxacin 500 mg tablet 500 mg PO DAILY Qty: 7 RF: 0 metronidazole [Flagyl] 500 mg tablet 500 mg PO Q8H 7 Days Qty: 21 RF: 0 Bio-K plus 50 billion cell capsule,delayed release(DR/EC) 1 cap PO DAILY Qty: 30 RF: 0 Continued cyclobenzaprine 10 mg tablet 10 mg PO DAILY PRNRF: 0 clobetasol 0.05 % cream 0.05 applic TOPICAL PRNRF: 0 meclizine 25 mg tablet 25 mg PO DAILY PRNRF: 0 levothyroxine 125 mcg tablet 125 mcg PO DAILY RF: 0 Discharge Instructions Instructions: Diverticulitis (DC), Diverticulitis Diet (DC) Additional Instructions: -Follow-up with Dr. Garcia 11/23 in clinic -low fiber diet -no straining to move bowels - if you do not move your bowels daily take a dose of OTC milk of magnesia -It is ok to shower. No bathe, soaking, swimming or hot tubs You may find that your appetite is smaller. Eat 3-6 small meals throughout the day. It is important to drink lots of water after surgery, 6-10 glasses a day. -If you were given an incentive spirometry (breathing check examiner?), continue to do this 10x/hour while awake. -We do want you up walking, at least 5-6 times per day. This is very important to prevent pneumonia and blood clots. You can climb stairs, take them slowly. -No lifting over 5 pounds. This is very important to avoid developing a hernia in your incision. -You may find that you are very tired after surgery- this is normal. -please do not smoke for a minimum of 72 hours after surgery. What is a gastrointestinal soft diet? This diet is soft in texture, low in fiber, and easy to digest. The goal is to decrease) in the bowel that may cause and discomfort. This diet is often used after abdominal surgery or as a transitional diet after flares. Meats & Meat Substitutes ? Foods Allowed: Chicken, turkey, fish, tender cuts of beef and pork, ground meats, eggs, creamy nut butters, tofu, skinless hot dogs, sausage patties without whole spices ? Foods to Avoid : Tough, fibrous meats with gristle, meat with casings (hot dogs, sausage, kielbasa), lunch meats with whole spices, shellfish, beans, chunky peanut butter, nuts Fruits and Juices ? Foods Allowed: Fruit juices without pulp, banana, avocado, applesauce, canned peaches and pears, cooked fruit without the skin/seeds ? Foods to Avoid: Juices with pulp, fresh fruit (except banana and avocado), dried fruits, canned fruit cocktail and pineapple, coconut, frozen/thawed berries Vegetables ? Foods Allowed: Well-cooked or canned vegetables, potatoes without skin, tomato sauces, vegetable juice ? Foods to Avoid: Raw vegetables, all corn, all mushrooms, stewed tomatoes, potato skins, stir-valdez vegetables, sauerkraut, pickles, olives, all dried beans, peas, and legumes Cereals and Grains ? Foods Allowed: Low- fiber dry or cooked cereals (less than 2 grams fiber per serving), white rice, pasta, macaroni, or noodles ? Foods to Avoid: Cereals with nuts, berries, dried fruits, whole grain cereals, bran cereals, granola, brown or wild rice, whole grain pasta Breads and Crackers ? Foods Allowed: White/refined breads and rolls, plain bagel, toast, plain crackers, julieth crackers ? Foods to Avoid: Whole grain breads- including white whole grain; bread/ rolls with raisins, nuts or seeds, multi-grain crackers Dairy ? Foods Allowed: Milk, cheese, yogurt, milkshakes, pudding, ice cream, cottage cheese, sherbet ; lactose free or low lactose versions if lactose intolerant ? Foods to Avoid: Dairy product mixed with fresh fruit (except banana), berries, nuts or seeds Desserts ? Foods Allowed: Plain cake, pudding, custard, ice cream, sherbet, gelatin, fruit whips ? Foods to Avoid: Any dessert that contains nuts, dried fruits, coconut, or fruits with seeds Herbs and Spices ? Foods Allowed: All ground spices or herbs, salt ? Foods to Avoid: Whole spices such as peppercorns, whole cloves, anise seeds, celery seeds, kiet, juanita seeds, and fresh herbs Snacks/Other Foods ? Foods Allowed: Sugar, honey, jelly, mayonnaise, mustard, soy sauce, oil, butter, margarine, marshmallows, cookies without dried fruits or nuts, snack chips and pretzels using refined flours ? Foods to Avoid: Carbonated beverages, jams or jellies with seeds, popcorn After several weeks, slowly start to reintroduce the ?Foods to Avoid? back into your diet unless your doctor has told you otherwise. Try a small portion of one of these foods each day. If it does not bother you within 24 hours, it can be added to your diet. Continue to add new foods in this way. Some people may continue to have food sensitivities and may need to continue to avoid certain foods. If you cannot tolerate a food, avoid that food for a few weeks before you try it again. Guidelines when eating 1. Avoid any food that you cannot tolerate or that causes gas, bloating, or stomach pain. 2. Make time for your meals. Do not eat while you are in a hurry. Cut your food into small pieces. Chew each bite to a mashed potato consistency. Do not eat when you cannot concentrate on chewing well. 3. Drink at least 6-8 cups of fluid per day Fluids include: water, coffee, tea, juice, milk, popsicles, soups, gelatin, pudding, ice cream, sherbet, and yogurt. In addition, choose caffeine-free beverages more often, especially if you are having diarrhea. 4. A daily multivitamin may be recommended if diet is limited in amounts or variety of foods. Do not take any herbal supplements without first checking with your doctor. Stand Alone Forms: Nursing Discharge Form Activity:: see above Equipment/Supplies:: No Equipment Needed Diet:: Soft Diet Discharge Orders Discharge Orders: Discharge Order (Routine); Ordered 11/13/20 Ordered By: Mariah Palmer DS: Summary Time Spent with Patient providing and/or coordinating discharge services: Less than 30 minutes Status at Discharge Functional status at discharge: independent ambulation Overall status at discharge: patient is back to baseline Mental Status: mental status grossly normal Speech and Movement: speech and movement normal Mood: congruent mood Affect: normal affect Exam Psych Mental Status: mental status grossly normal Speech and Movement: speech and movement normal Mood: congruent mood Affect: normal affect PFSH Medical History (Updated 11/11/20 @ 14:39 by Michaela Gracia MD) Diverticulosis Gastritis Heart burn Hypothyroidism Surgical History (Updated 11/11/20 @ 14:34 by Michaela Gracia MD) Arthroplasty of knee H/O esophagogastroduodenoscopy (~09/18/14) S/P colonoscopy (~09/18/14) [place]- Diverticulosis Social History Smoking/Tobacco Use Status: Never Smoking risk assessment performed?: Yes Alcohol Intake: current Alcohol Intake frequency: holidays/special occasions only Drug use: Never Substance use type: does not use Do you feel safe at home: Yes Do you feel safe in your relationship?: Yes
--- NOTE | 2020-11-12 14:15 | PDOC.CMDIS ---
- If Service Date Differs Date of service: 11/12/20 Time of Service: 14:15 LACE Index Scoring Tool - Questions: Length of Stay (in days): 3 Acuity (Admit via E.D.?): Yes E.D. Visits: 1 - Answers: Total Score: 7 Risk of Readmission: Low Risk Care Management Discharge Reason for Hospitalization: Sigmoid diverticulitis with perforation Discharge Plan: Maya will return home today with no additional services. Her will drive her home via private vehicle. She will follow up with Surgical, her PCP and discharge plan of care. She is happy to be going home. Patient/Family Education Needs: Review discharge instructions regarding activity levels and medications, discussion of self care needs including ask me three.
[2020-11-12 15:29] VITALS: BP 116/75; PULSE 81; RESP 19; TEMP 36.9; O2SAT 97
[2020-11-12] MEDS: Enoxaparin 30 MG/0.3 ML SYR SC (16:45)
[2020-11-12 21:40] LABS: COVID-19 RT-PCR UVMMC Result Negative (Negative)
[2020-11-13] MEDS: metroNIDAZOLE 500 MG/100 ML BAG 100 MG IVPB ×2 (02:00→08:58)
[2020-11-13] MEDS: Lactated Ringers 1,000 ML 125 ML IV ×2 (02:00→13:03)
[2020-11-13 02:07] VITALS: BP 124/71; PULSE 88; RESP 18; TEMP 37; O2SAT 96
[2020-11-13] MEDS: Levothyroxine 125 MCG TAB PO (05:41)
[2020-11-13 07:25] VITALS: BP 132/79; PULSE 69; RESP 18; TEMP 36.6; O2SAT 98
--- NOTE | 2020-11-13 07:38 | W.PM.PROGNOT ---
Documented by User: NNEKA Webb 11/13/20 07:46 Date of Service Date of service: 11/13/20 Time of Service: 07:39 Assessment and Plan Assessment and plan (1) Diverticulitis of large intestine with perforation: Status: Acute Assessment and plan: She is tolerating a soft diet. Denies any abdominal pain. (+) BMs without difficulty or pain. IV Levaquin and Flagyl. Will order this PO upon d/c Ambulate SCD's when in bed ISP while awake Lovenox for prophylaxis as well as Pepcid I spent 27 minutes in reviewing the record, seeing the patient, providing patient education, answering patient's questions and documenting in the medical record. Qualifiers: Diverticulitis bleeding: without bleeding Qualified Code(s): K57.20 - Diverticulitis of large intestine with perforation and abscess without bleeding Subjective Subjective Interval history since last seen: Patient reports she is feeling great this morning. She denies any abdominal pain. She has had several formed, soft BMs without any difficulty. She denies any pain with BMs. Exam Const General: cooperative, healthy appearing and comfortable Orientation: alert and oriented x3 Resp Effort & Inspection: normal respiratory effort, no audible wheezes and no cough GI Inspection: normal to inspection Palpation: soft, no guarding and nontender Objective Last Vital Signs Temp 37 C 11/13/20 02:07 Pulse 88 11/13/20 02:07 Resp 18 11/13/20 02:07 BP 124/71 11/13/20 02:07 Pulse Ox 96 11/13/20 02:07 Laboratory Results - last 24 hr 11/10/20 19:43 SARS-CoV-2 (PCR) Negative Nasopharyn COVID-19 PCR Not Applicable Ref Test Perform Site [facility] Documented by User: Mariah Palmer DO 11/13/20 15:50 Assessment and Plan Assessment and plan (1) Diverticulitis of large intestine with perforation: Status: Acute Assessment and plan: pt seen examined. agree w/ above f/u gonzalez 11/23 low fiber diet abx levaquin/flagyl off work unti l 11/23. Qualifiers: Diverticulitis bleeding: without bleeding Qualified Code(s): K57.20 - Diverticulitis of large intestine with perforation and abscess without bleeding
[2020-11-13] MEDS: levoFLOXacin 500 MG/100 ML BAG 100 MG IVPB (11:03)
[2020-11-13] MEDS: Normal Saline 500 ML 30 ML IV (11:03)
[2020-11-13] MEDS: Enoxaparin 30 MG/0.3 ML SYR SC (15:59)
--- NOTE | 2020-11-13 18:45 | CMDISCH_ITS ---
- If Service Date Differs Date of service: 11/13/20 Time of Service: 18:45 LACE Index Scoring Tool - Questions: Length of Stay (in days): 4 - 6 Acuity (Admit via E.D.?): Yes E.D. Visits: 1 - Answers: Total Score: 8 Risk of Readmission: Low Risk Care Management Discharge Reason for Hospitalization: Sigmoid diverticulitis with perforation Discharge Plan: Maya will return home today with no additional services. Her will drive her home via private vehicle. She will follow up with Surgical, her PCP and discharge plan of care. Maya was planned to discharge yesterday, but remained at [facility] overnight. She was happy to be returning home today. Patient/Family Education Needs: Review discharge instructions regarding activity levels and medications, discussion of self care needs including ask me three.
== END 2020-11-13 17:20 | disposition home or self-care (01) | DRG 392 ==
LOC: ER 19:45 → MS 20:48
PROVIDERS: Admitting Provider Surgery; Emergency Provider Student in an Organized Health Care Education/Training Program; PCP Nurse Practitioner; Visit Provider Surgery
DX: K57.20 Diverticulitis of large intestine with perforation and abscess without bleeding (principal); E03.9 Hypothyroidism, unspecified; K29.70 Gastritis, unspecified, without bleeding
CPT/HCPCS: 36415; 80048; 80053; 83690; 96365; 96368; 96375; 99223; 99232; 99238; 99285; U0003; 74177; 81003; 85025; 86140; J0131; J1650; J1885; J1956; J3490

== ENCOUNTER 2020-11-22 09:01 | Outpatient (REF) | payer OTHER, SELFPAY ==
[2020-11-22 15:29] LABS: Abs Immature Grans 0.04 10^3/uL (0.0-0.06); Absolute Basophil Count 0.05 10^3/uL (0.0-0.2); Absolute Eosinophil Count 0.05 10^3/uL (0.0-0.7); Absolute Lymphocyte Count 1.88 10^3/uL (1.2-3.4); Absolute Monocyte Count 0.58 10^3/uL (0.1-0.8); Absolute Neutrophil Count 4.68 10^3/uL (1.2-6.7); Basophils % 0.7; Eosinophils % 0.7; HCT 40.8 % (36.0-46.0); HGB 13.2 g/dL (11.2-15.7); Immature Grans % 0.5; Lymphocytes % 25.8; MCH 28.8 pg (27.0-33.0); MCHC 32.4 % (32.0-36.0); MCV 89.1 fL (80-95); MPV 10.2 fL (8.0-11.0); Neutrophils % 64.3; Nucleated RBC 0 %; Platelet Count 311 10^3/uL (130-400); RBC 4.58 10^6/uL (3.93-5.22); RDW 14.2 % (11.7-14.6); RDW-SD 45.7 fL; WBC 7.28 10^3/uL (4.4-10.8)
[2020-11-22 15:54] LABS: Calculated LDL 70 mg/dL (<100); Cholesterol 149 mg/dL (<200); HDL Cholesterol 44 mg/dL (40-60); TSH (W/Ref FT4) 1.96 uIU/mL (0.36-3.74); Triglyceride 176 mg/dL (<150)
[2020-11-22 16:07] LABS: C-Reactive Protein 0.17 mg/dL (0.0-0.3)
== END 2020-11-22 09:02 | disposition home or self-care (01) ==
LOC: NCHCN 09:01
PROVIDERS: PCP Nurse Practitioner; Visit Provider Nurse Practitioner
DX: E03.9 Hypothyroidism, unspecified (principal); K57.90 Diverticulosis of intestine, part unspecified, without perforation or abscess without bleeding; E78.5 Hyperlipidemia, unspecified
CPT/HCPCS: 80061; 84443; 85025; 86140

== ENCOUNTER 2020-12-21 12:08 | Emergency (ER) | payer OTHER, SELFPAY ==
[2020-12-21 12:16] VITALS: BP 141/55; PULSE 83; RESP 18; TEMP 36.6; O2SAT 99
--- NOTE | 2020-12-21 12:37 | ED.GENADUL_ITS ---
Discharge Plan Disposition Patient Disposition: HOME Condition: Stable Discharge Details Clinical Impression: Diverticulitis Primary Care Provider: Sierra Forbes ED Provider: Stacey Naylor Home Meds and New Rx's Prescriptions: New levofloxacin 500 mg tablet 500 mg PO DAILY 10 Days Qty: 10 RF: 0 metronidazole [Flagyl] 500 mg tablet 500 mg PO BID 10 Days Qty: 20 RF: 0 Probiotic 20 billion cell capsule 20,000 mmu cells PO DAILY 10 Days Qty: 10 RF: 0 No Action hydrocortisone 2.5 % cream with perineal applicator 1 applic IA BID-QID PRN (Reason: itching/pain) Qty: 30 RF: 12 polyethylene glycol 3350 17 gram/dose powder 238 g PO ONCE Qty: 238 RF: 0 bisacodyl [Dulcolax (bisacodyl)] 5 mg tablet,delayed release (DR/EC) 5 mg PO ONCE Qty: 4 RF: 0 cyclobenzaprine 10 mg tablet 10 mg PO DAILY PRNRF: 0 clobetasol 0.05 % cream 0.05 applic TOPICAL PRN PRNRF: 0 meclizine 25 mg tablet 25 mg PO DAILY PRNRF: 0 levothyroxine 125 mcg tablet 125 mcg PO DAILY RF: 0 Bio-K plus 50 billion cell capsule,delayed release(DR/EC) 1 cap PO DAILY Qty: 30 RF: 0 Discharge Instructions Instructions: Diverticulitis (ED), Diverticulitis Diet (ED) Additional Instructions: Please keep your appointment with Dr. Palmer in 1 week. I did discuss the CT findings with her and she recommended 10 days of the antibiotics you are previously on along with a probiotic. Please take the probiotic with the antibiotic and or eat yogurt while taking the antibiotics. Return to the ED for any fever, worsening abdominal pain, vomiting unable to keep the antibiotics down or any concerns. Follow up with primary care provider in 3-5 days. Return to ED sooner if any worsening or concerns. Increase oral fluids. Please take Tylenol or Ibuprofen with food every 4-6 hours as needed for pain and swelling. Referrals: Sierra Forbes [Primary Care Provider] - Mariah Palmer DO [OSTEOPATHIC DOCTOR] - 1 week Discharge Data Discharge Date/Time-TO BE ENTERED AT DEPARTURE: 12/21/20 16:05 Medical Decision Making 60-year-old female presents the ER chief complaint of left lower quadrant abdominal pain which began gradually worsening over the last few days increasing intensity last night. She states that the pain is worse when walking and having a bowel movement. She was seen approximately 1 month ago for similar pain and was admitted in the hospital for a possible perforated diverticulitis. She is scheduled for a colonoscopy with Dr. Palmer 1 week from today. She states that she had a small loose BM this morning, took 2 extra strength Tylenol this morning at 430. Denies any vomiting, fever chills, myalgias denies any hematemesis. She has a past medical history of hypothyroidism, gastritis, diverticulosis Work-up is largely within normal limits no leukocytosis, absolute neutrophils 7.18, lactate 0.9 which is a normal limits CMP is also within normal limits. Ur inalysis is negative for any signs of infection or pyuria. 1400: Dr. Palmer here in department she is inquiring about patient, she recommends oral contrast. Radiology notified to bring over oral contrast. 1430: Patient is finished drinking the first bottle of oral contrast. Discussed plan of care and oral prep. At this point CT scan will probably be done around 330 to 4:00 PM. She is alert and oriented, no vomiting in no acute distress at this time. FINDINGS: CT examination of the abdomen and pelvis was performed with a bolus infusion of 100 cc of Omnipaque 350. Images obtained through the lung bases are unremarkable. The liver is unremarkable in appearance. Gallbladder and bile ducts are CT normal. Pancreas appears normal. Spleen is unremarkable in appearance. Adrenals appear normal. The kidneys are unremarkable with no evidence of hydronephrosis, nephrolithiasis, or renal mass.. Urinary bladder unremarkable. Abdominal aorta is of normal diameter and no major vascular abnormality is seen. No abdominal wall hernia. No abdominal or pelvic adenopathy. [employer] structures appear intact. Appendix is normal. There is wall thickening of the sigmoid colon and there is marked pericolonic fat edema noted associated with the sigmoid. Findings are consistent with acute diverticulitis. No evidence of free intraperitoneal air or abscess formation. IMPRESSION: Findings consistent with acute uncomplicated sigmoid diverticulitis. 1544: Page out to Dr. Palmer with general surgery. Patient was placed on Levaquin once daily and Flagyl with her last admission with diverticulitis she states that she had no problems with this antibiotic regimen plan will be to place patient on this antibiotic regimen barring any recommendations from Dr. Palmer. Discussed patient results with patient she verbalizes understanding. She is complaining of a headache and request some Tylenol. We will give her first dose of antibiotic here while in department. 1400: Spoke with Dr. Palmer regarding patient and CT result she verbalizes understanding recommends the same duo antibiotic as last time however, she does recommend 10-day, she also recommends a probiotic and being seen by her outpatient in 1 week. Patient is tolerating p.o. here in department without any difficulty. Plan is to discharge patient home with outpatient treatment discussed strict return instructions, verbalized understanding. HPI General Mode of arrival: ambulatory . Date/Time Provider Initiated Documentation: 12/21/20 12:17 . Limitations to Documentation: no limitations . Information obtained by: patient . HPI Narrative: 60-year-old female presents the ER chief complaint of left lower quadrant abdominal pain which began gradually worsening over the last few days increasing intensity last night. She states that the pain is worse when walking and having a bowel movement. She was seen approximately 1 month ago for similar pain and was admitted in the hospital for a possible perforated diverticulitis. She is scheduled for a colonoscopy with Dr. Palmer 1 week from today. She states that she had a small loose BM this morning, took 2 extra strength Tylenol this morning at 430. Denies any vomiting, fever chills, myalgias denies any hematemesis. She has a past medical history of hypothyroidism, gastritis, diverticulosis Related Data Home Medications Medication Instructions Recorded Confirmed clobetasol 0.05 applic TOPICAL PRN PRN 11/10/20 12/21/20 cyclobenzaprine 10 mg PO DAILY PRN 11/10/20 12/21/20 levothyroxine 125 mcg PO DAILY 11/10/20 12/21/20 meclizine 25 mg PO DAILY PRN 11/10/20 12/21/20 L. acidophilus,casei,rhamnosus 1 cap PO DAILY #30 cap 11/13/20 12/21/20 [Bio-K plus] hydrocortisone 2.5 % topical cream 1 applic IA BID-QID PRN #30 g 11/22/20 12/21/20 with perineal applicator bisacodyl 5 mg tablet,delayed 5 mg PO ONCE #4 tab 12/17/20 12/21/20 release polyethylene glycol 3350 17 238 g PO ONCE #238 g 12/17/20 12/21/20 gram/dose oral powder lactobacillus comb no.10 20,000 mmu cells PO DAILY 10 Days 12/21/20 [Probiotic] #10 cap levofloxacin 500 mg PO DAILY 10 Days #10 tab 12/21/20 metronidazole [Flagyl] 500 mg PO BID 10 Days #20 tab 12/21/20 Previous Rx's Medication Instructions Recorded L. acidophilus,casei,rhamnosus 1 cap PO DAILY #30 cap 11/13/20 [Bio-K plus] hydrocortisone 2.5 % topical cream 1 applic IA BID-QID PRN #30 g 11/22/20 with perineal applicator bisacodyl 5 mg tablet,delayed 5 mg PO ONCE #4 tab 12/17/20 release polyethylene glycol 3350 17 238 g PO ONCE #238 g 12/17/20 gram/dose oral powder lactobacillus comb no.10 20,000 mmu cells PO DAILY 10 Days 12/21/20 [Probiotic] #10 cap levofloxacin 500 mg PO DAILY 10 Days #10 tab 12/21/20 metronidazole [Flagyl] 500 mg PO BID 10 Days #20 tab 12/21/20 Allergies Allergy/AdvReac Type Severity Reaction Status Date / Time amoxicillin [Amoxicillin] Allergy Intermediate Skin Rash Unverified 12/21/20 12:20 pantoprazole sodium Allergy Intermediate Dizziness/L Unverified 12/21/20 12:20 [From Protonix] ightheade sulfamethoxazole Allergy Intermediate Skin Rash Unverified 12/21/20 12:20 [From Bactrim] trimethoprim [From Bactrim] Allergy Intermediate Skin Rash Unverified 12/21/20 12:20 latex AdvReac local rash Unverified 12/21/20 12:20 General Stated Complaint: Abd Prob AAKASH: 3 Review of Systems Narrative: Constitutional: Negative for weight loss, alert and oriented, well groomed, normal body habitus, appears comfortable. HEENT: Denies trauma, headaches, blurry vision, nasal discharge, sore throat, trouble swallowing. Chest: Denies chest pain, palpitations, irregular rhythm, hypertension. Respiratory: Denies Shortness of breath, cough, hemoptysis. GI: Denies nausea, vomiting, constipation. Reports left lower quadrant pain, loose stools. : Denies dysuria, hematuria, flank pain, rectal bleeding. Neuro: Denies dizziness, blurry vision, weakness, syncope, headache or facial numbness. Hematologic: Denies easy bruising, intolerance to heat or cold, hair loss. PFSH Medical History Diverticulosis Gastritis Heart burn Hypothyroidism Surgical History Arthroplasty of knee H/O esophagogastroduodenoscopy (~09/18/14) S/P colonoscopy (~09/18/14) AK- Diverticulosis Social History Smoking/Tobacco Use Status: Never Smoking risk assessment performed?: Yes Alcohol Intake: former Drug use: Never Substance use type: does not use Do you feel safe at home: Yes Do you feel safe in your relationship?: Yes Exam Narrative Exam Narrative: Constitutional: Alert and oriented x3. Appears stated age. Normal body habitus. Head: Normocephalic, no trauma. Eyes: Pupils PERRLA, Red reflex noted, EOM's intact. Eyelids symmetrical without lesions, discharge, or swelling. Chest: RRR, Normal S1, S2, distal pulses intact. Resp: Lungs clear to auscultation bilaterally, no wheezes, rales, or rhonchi. Musculoskeletal: Normal gait, 5/5 strength to all four extremities. Abdominal: Soft, nondistended mild tender to palpation left lower quadrant. No tenderness over McBurney's point, bowel sounds are diminished all 4 quadrants. Skin: No suspicious rashes or lesions. Capillary refill less than 2 sec. Neurologic: Cranial nerves II-XII intact. Alert and oriented x 3. Hematologic/Lymphatic: No ecchymosis, no lymphadenopathy. Course Vital Signs Vital signs: Vital Signs Temperature 36.6 C 12/21/20 12:16 Pulse 83 12/21/20 12:16 Respiratory Rate 18 12/21/20 12:16 Blood Pressure 141/55 H 12/21/20 12:16 Pulse Oximetry 99 12/21/20 12:16 Temperature 36.6 C 12/21/20 12:16 Temperature Source Skin 12/21/20 12:16 Pulse 83 12/21/20 12:16 Respiratory Rate 18 12/21/20 12:16 Respiratory Effort Non-Labored 12/21/20 12:20 Blood Pressure 141/55 H 12/21/20 12:16 Blood Pressure Position Sitting 12/21/20 12:16 Pulse Oximetry 99 12/21/20 12:16 Oxygen Delivery Method Room Air 12/21/20 12:16 Oxygen Flow Rate 0 12/21/20 12:16 Pain Level 9 12/21/20 12:16
[2020-12-21 13:05] LABS: Abs Immature Grans 0.03 10^3/uL (0.0-0.06); Absolute Basophil Count 0.03 10^3/uL (0.0-0.2); Absolute Eosinophil Count 0.01 10^3/uL (0.0-0.7); Absolute Lymphocyte Count 1.08 10^3/uL (1.2-3.4); Absolute Neutrophil Count 7.18 10^3/uL (1.2-6.7); Basophils % 0.3; Eosinophils % 0.1; HCT 38.8 % (36.0-46.0); HGB 12.8 g/dL (11.2-15.7); Immature Grans % 0.3; Lactate 0.9 mmol/L (0.6-1.4); Lymphocytes % 11.8; MCH 29.5 pg (27.0-33.0); MCV 89.4 fL (80-95); MPV 9.2 fL (8.0-11.0); Monocytes % 8.8; Neutrophils % 78.7; Nucleated RBC 0 %; Platelet Count 249 10^3/uL (130-400); RBC 4.34 10^6/uL (3.93-5.22); RDW 12.6 % (11.7-14.6); RDW-SD 41.7 fL; WBC 9.13 10^3/uL (4.4-10.8)
[2020-12-21 13:10] LABS: Bilirubin Negative (Negative); Blood Negative (Negative); Clarity Sl Cloudy (Clear); Glucose Negative (Negative); Ketones Negative (Negative); Leukocyte Esterase Negative (Negative); Nitrite Negative (Negative); Specific Gravity 1.025 (1.005-1.025); Urobilinogen 0.2 EU/dL (Up TO 0.2)
[2020-12-21 13:25] LABS: ALT 23 U/L (14-59); AST 30 U/L (15-37); Albumin 3.6 g/dL (3.4-5.0); Alkaline Phosphatase 109 U/L (46-116); Anion Gap 10.1 mmol/L (3-11); BUN 16 mg/dL (7-18); Bilirubin, Total 0.6 mg/dL (0.2-1.0); CO2 25.9 mmol/L (21.0-32.0); CREATININE 0.9 mg/dL (0.55-1.02); Calcium 9.1 mg/dL (8.5-10.1); Chloride 103 mmol/L (98-107); Glucose 88 mg/dL (74-106); Lipase 104 U/L (73-393); Magnesium 2.2 mg/dL (1.8-2.4); Potassium 3.7 mmol/L (3.5-5.1); Sodium 139 mmol/L (136-145); Total Protein 7.8 g/dL (6.4-8.2)
[2020-12-21] MEDS: Breeza Beverage 473 ML BTL PO ×2 (13:50→13:51)
[2020-12-21] MEDS: Omnipaque 350 MG/ML 50 ML BTL PO (13:51)
[2020-12-21] MEDS: Normal Saline - Diluent 50 ML VIAL IV (15:03)
[2020-12-21] MEDS: Omnipaque 350 MG/ML 100 ML BTL IJ (15:04)
--- NOTE | 2020-12-21 15:06 | DI.CT_ITS ---
EXAM: CT ABDOMEN PELVIS W INDICATION: LLQ abd pain, Hx diverticulitis. COMPARISON: CT CT ABDOMEN PELVIS W from 11/10/2020 TECHNIQUE: FINDINGS: CT examination of the abdomen and pelvis was performed with a bolus infusion of 100 cc of Omnipaque 3 50. Images obtained through the lung bases are unremarkable. The liver is unremarkable in appearance. Gallbladder and bile ducts are CT normal. Pancreas appears normal. Spleen is unremarkable in appearance. Adrenals appear normal. The kidneys are unremarkable with no evidence of hydronephrosis, nephrolithiasis, or renal mass.. Ur inary bladder unremarkable. Abdominal aorta is of normal diameter and no major vascular abnormality is seen. No abdominal wall hernia. No abdominal or pelvic adenopathy. [employer]TER structures appear intact. Appendix is normal. There is wall thickening of the sigmoid colon and there is marked pericolonic fat edema noted associa сергей with the sigmoid. Findings are consistent with acute diverticulitis. No evidence of free intrap eritoneal air or abscess formation. IMPRESSION: Findings consistent with acute uncomplicated sigmoid diverticulitis. RADIATION DOSE DELIVERED: 898.52mGy.cm Total DLP 898.52mGy.cm Total DLP RADIATION OPTIMIZATION: All CT scans at this facility use at least one of these dose optimization te chniques: automated exposure control; mA and/or kV adjustment per patient size (includes targeted exa ms where dose is matched to clinical indication); or iterative reconstruction.
[2020-12-21] MEDS: levoFLOXacin 500 MG TAB PO (15:53)
[2020-12-21] MEDS: metroNIDAZOLE 500 MG TAB PO (15:53)
[2020-12-21] MEDS: Acetaminophen 500 MG TAB PO (15:53)
== END 2020-12-21 16:05 | disposition home or self-care (01) ==
PROVIDERS: Emergency Provider Registered Nurse Emergency; PCP Nurse Practitioner
DX: K57.32 Diverticulitis of large intestine without perforation or abscess without bleeding (principal)
CPT/HCPCS: 80053; 83690; 99283; 74177; 81003; 83605; 83735; 85025; J3490; Q9967

== ENCOUNTER 2020-12-27 03:24 | Outpatient (CLI) | payer OTHER, SELFPAY ==
[2020-12-27 12:38] LABS: Abs Immature Grans 0.02 10^3/uL (0.0-0.06); Absolute Basophil Count 0.04 10^3/uL (0.0-0.2); Absolute Eosinophil Count 0.03 10^3/uL (0.0-0.7); Absolute Lymphocyte Count 1.88 10^3/uL (1.2-3.4); Absolute Monocyte Count 0.51 10^3/uL (0.1-0.8); Absolute Neutrophil Count 4.25 10^3/uL (1.2-6.7); Basophils % 0.6; Eosinophils % 0.4; HCT 37.3 % (36.0-46.0); HGB 12.3 g/dL (11.2-15.7); Immature Grans % 0.3; Lymphocytes % 27.9; MCH 29.1 pg (27.0-33.0); MCV 88.2 fL (80-95); MPV 9.6 fL (8.0-11.0); Monocytes % 7.6; Neutrophils % 63.2; Nucleated RBC 0 %; Platelet Count 259 10^3/uL (130-400); RBC 4.23 10^6/uL (3.93-5.22); RDW 12.2 % (11.7-14.6); RDW-SD 39.8 fL; WBC 6.73 10^3/uL (4.4-10.8)
[2020-12-27 12:46] LABS: C-Reactive Protein 0.21 mg/dL (0.0-0.3)
== END 2020-12-27 03:25 | disposition home or self-care (01) ==
LOC: LBO 03:24
PROVIDERS: PCP Nurse Practitioner; Visit Provider Surgery
DX: K57.20 Diverticulitis of large intestine with perforation and abscess without bleeding (principal)
CPT/HCPCS: 36415; 85025; 86140

== ENCOUNTER 2021-01-30 04:10 | Outpatient (CLI) | payer OTHER, SELFPAY ==
[2021-01-30 10:51] LABS: Source Nasal/Nares
[2021-01-30 15:50] LABS: COVID-19 PCR Negative (Negative)
== END 2021-01-30 04:11 | disposition home or self-care (01) ==
LOC: LBO 04:10
PROVIDERS: PCP Nurse Practitioner; Visit Provider Surgery
DX: Z20.822 Contact with and (suspected) exposure to COVID-19 (principal); Z01.818 Encounter for other preprocedural examination
CPT/HCPCS: 87635

== ENCOUNTER 2021-02-01 06:13 | Day surgery (SDC) | payer OTHER, SELFPAY ==
--- NOTE | 2021-01-31 21:09 | HPE_ITS ---
Date of service: 02/01/21 Time of Service: 21:10 Assessment and Plan Assessment and plan (1) Diverticulitis of large intestine with perforation: Status: Acute Assessment and plan: Plan:Colonscopy w/ MAC The patient will be scheduled by my office. The pt understands that they need to do a bowel prep and the importance of hydration during this. The patient understands there is a theoretical risk of renal failure. For healthy patients we use Gatorade/Miralax Prep. For anyone with renal concerns- GoLytely will be used. Plavix and coumadin will need to be held except in unusual circumstances. Patients in A. Fib do not need to be bridged with Lovenox or on CVA prophylaxis. A baby ASA can be continued but full dose ASA needs to be stopped for 10 days prior to the procedure. A complete H & P is required within 30 days of the procedure. MAC is used for the colonoscopy. Colonoscopy does not require antibiotics prophylaxis. Thank you for allowing me to participate in the care of this Patient. A copy of the Endoscopy report will be forwarded to your office. Informed consent is obtained for the procedural (explained in simple layman's terms that the pt and/or family could understand) explaining risks vs benefits and alternatives to the procedure and consequences if we do not do the procedure and need/rational for the procedure. Risks include but are not limited to: bleeding, infection, perforation of colon. This would necessitate emergency surgery to repair the damage w/ possible ostomy; and other associated complications w/ the required surgery. Also complications of anesthesia including aspiration, IN/CVA/. I discussed with the patient would they could expect during the procedure, post procedure and recovery time and risks. The patient understands that they need to have a ride home after the procedure. The patient was given all this information in writing and expressed understanding. to your office. If there are any questions or concerns please feel free to contact our office. Qualifiers: Diverticulitis bleeding: without bleeding Qualified Code(s): K57.20 - Diverticulitis of large intestine with perforation and abscess without bleeding (2) Diverticula of colon: Status: Acute (3) Hypothyroidism: Status: Acute History of Present Illness Consults Consult date: 02/01/21 Narrative: pt states her bowels are moving just once a day. no pain. Formed. No blood. eating ok. no fevers/chills. She notes urinating is better- prior to her hospitalization, she was having problems holding her urine b/c she felt pressure and was having urgency. She thought she had a pulled a muscle at work. She has had episode of c onstipation. She had a colonoscopy in 2013 that showed diverticula. No family history of colon cancer that she is aware of. We had to postpone her CE b/c she had another episode of diverticulitis in November. Today she is doing well. She completed her prep w/ out problems. She is not having any abdominal pain or cramping. She had no bleeding. The discharge she is having is clear yellow. She is not having any chest pain or sob. She is not had any fevers/chills, or productive cough. Her Covid was negative. Review of Systems All systems reviewed & are unremarkable except as noted in HPI and below PFSH Medical History Diverticulosis Gastritis Heart burn Hypothyroidism Surgical History (Updated 02/01/21 @ 06:27 by Tonja Rios) Arthroplasty of knee error. no total knee H/O esophagogastroduodenoscopy (~09/18/14) History of arthroscopic knee surgery S/P colonoscopy (~09/18/14) [place]- Diverticulosis Social History Smoking/Tobacco Use Status: Never Smoking risk assessment performed?: Yes Alcohol Intake: current Alcohol Intake frequency: holidays/special occasions only Drug use: Never Substance use type: does not use Current gender identity: female Do you feel safe at home: Yes Do you feel safe in your relationship?: Yes Meds Allergies and Home Medications Allergies Allergy/AdvReac Type Severity Reaction Status Date / Time amoxicillin [Amoxicillin] Allergy Intermediate Skin Rash Unverified 02/01/21 06:28 pantoprazole sodium Allergy Intermediate Dizziness/L Unverified 02/01/21 06:28 [From Protonix] ightheade sulfamethoxazole Allergy Intermediate Skin Rash Unverified 02/01/21 06:28 [From Bactrim] trimethoprim [From Bactrim] Allergy Intermediate Skin Rash Unverified 02/01/21 06:28 latex AdvReac local rash Unverified 02/01/21 06:28 Home Medications Medication Instructions Recorded Confirmed Type clobetasol 0.05 applic TOPICAL PRN PRN 11/10/20 01/30/21 History cyclobenzaprine 10 mg PO DAILY PRN 11/10/20 01/30/21 History levothyroxine 125 mcg PO DAILY 11/10/20 02/01/21 History L. acidophilus,casei,rhamnosus 1 cap PO DAILY #30 cap 11/13/20 02/01/21 Rx [Bio-K plus] hydrocortisone 2.5 % topical cream 1 applic OR BID-QID PRN #30 g 11/22/20 01/30/21 Rx with perineal applicator bisacodyl 5 mg tablet,delayed 5 mg PO ONCE #4 tab 12/17/20 02/01/21 Rx release polyethylene glycol 3350 17 238 g PO ONCE #238 g 12/17/20 02/01/21 Rx gram/dose oral powder Exam Narrative Exam Narrative: PHYSICAL EXAM GENERAL APPEARANCE: Alert, healthy appearance, oriented, in no acute distress SKIN: No rashes. No breakdown HYDRATION: Well hydrated HEAD, EYES, EARS, NECK, THROAT: Head is normocephalic, pupils equal, round, reactive to light and accommodation, ocular movement intact, sclera clear and no jaundice. Dentition intact. No sore throat. No jaw pain. No thrush NECK: Supple, Trachea midline. No JVD. LUNGS: normal respiration/nl chest excursion. Clear to auscultation B/l no R/R/W HEART: Regular rate and rhythm, EXTREMITY: No edema or cyanosis no leg pain, redness, swelling. No IV infiltration ABDOMEN: non tender to palpation, no masses or distention, no hernias. Normal bowel sounds NEURO: no focal neuro deficits. COVID-19 Screening Have you, or household traveled for leisure in last 14 days?: No Had IN PERSON contact w/suspected or confirmed C-19 person: No
[2021-02-01 06:15] VITALS: BP 133/74; PULSE 62; RESP 18; TEMP 36.5; O2SAT 100
[2021-02-01] MEDS: Lactated Ringers 1,000 ML 80 ML IV (06:41)
--- NOTE | 2021-02-01 07:01 | W.ANESPRE ---
General Info Date of Service Date Performed: 02/01/21 Height: 5 ft Weight: 73.7 kg Body Mass Index (BMI): 31.7 Surgical Procedure: Operation Date: 02/01/21 07:35 Proposed Procedures Side Surgeon katerina Palmer DO Meds Allergies and Home Medications Allergies Allergy/AdvReac Type Severity Reaction Status Date / Time amoxicillin [Amoxicillin] Allergy Intermediate Skin Rash Unverified 02/01/21 06:28 pantoprazole sodium Allergy Intermediate Dizziness/L Unverified 02/01/21 06:28 [From Protonix] ightheade sulfamethoxazole Allergy Intermediate Skin Rash Unverified 02/01/21 06:28 [From Bactrim] trimethoprim [From Bactrim] Allergy Intermediate Skin Rash Unverified 02/01/21 06:28 latex AdvReac local rash Unverified 02/01/21 06:28 Home Medication Medication Instructions Recorded clobetasol 0.05 applic TOPICAL PRN PRN 11/10/20 cyclobenzaprine 10 mg PO DAILY PRN 11/10/20 levothyroxine 125 mcg PO DAILY 11/10/20 L. acidophilus,casei,rhamnosus 1 cap PO DAILY #30 cap 11/13/20 [Bio-K plus] hydrocortisone 2.5 % topical cream 1 applic ND BID-QID PRN #30 g 11/22/20 with perineal applicator bisacodyl 5 mg tablet,delayed 5 mg PO ONCE #4 tab 12/17/20 release polyethylene glycol 3350 17 238 g PO ONCE #238 g 12/17/20 gram/dose oral powder Current Visit Medications: Current Medications Generic Name Dose Route Start Last Admin Trade Name Freq PRN Reason Stop Dose Admin Ringer's Solution 1,000 mls @ 80 mls/hr 02/01/21 06:00 02/01/21 06:41 IV 03/02/21 23:59 80 mls/hr INFUSION STEFAN Administration IV Miscellaneous Supplies 1 each 02/01/21 06:00 Iv Access IV 03/02/21 23:59 DIRECTED STEFAN Sodium Chloride 0 ml 02/01/21 06:00 Normal Saline Flush 10 Ml Syr IV 03/02/21 23:59 PRN PRN Sodium Chloride 0 ml 02/01/21 06:00 Normal Saline 10 Ml Vial IJ 03/02/21 23:59 DIRECTED PRN Sterile Water 0 ml 02/01/21 06:00 Water,Injection,Sterile 10 Ml Vial IJ 03/02/21 23:59 DIRECTED PRN PFSH Active Problems Active Problems: Problem Status Onset Code Diverticulitis of large intestine with perforation K57.20 Diverticulitis K57.92 Diverticula of colon K57.30 Gastritis K29.70 Hypothyroidism E03.9 Medical History Medical History Diverticulosis Gastritis Heart burn Hypothyroidism Surgical History Surgical History (Updated 02/01/21 @ 06:27 by Tonja Rios) Arthroplasty of knee error. no total knee H/O esophagogastroduodenoscopy (~09/18/14) History of arthroscopic knee surgery S/P colonoscopy (~09/18/14) [place]- Diverticulosis Tobacco Smoking/Tobacco Use Status: Never Alcohol Alcohol Intake: current Alcohol intake frequency: holidays/special occasions only Substance Use Substance use: Never Substance use type: does not use Vital Signs and Lab Results Vital Signs Most Recent Vital Signs in EMR: Most Recent Vital Signs Temp Pulse Resp BP Pulse Ox 36.5 C 62 18 133/74 100 02/01/21 06:15 02/01/21 06:15 02/01/21 06:15 02/01/21 06:15 02/01/21 06:15 Lab Results Blood Type / Crossmatch: No Data to Display Complete Blood Count: White Blood Count 6.73 10^3/uL (4.4-10.8) 12/27/20 12:31 12/27/20 Red Blood Count 4.23 10^6/uL (3.93-5.22) 12/27/20 12:31 12/27/20 Hemoglobin 12.3 g/dL (11.2-15.7) 12/27/20 12:31 12/27/20 Hematocrit 37.3 % (36.0-46.0) 12/27/20 12:31 12/27/20 Platelet Count 259 10^3/uL (130-400) 12/27/20 12:31 12/27/20 Complete Metabolic Panel: Sodium Level 139 mmol/L (136-145) 12/21/20 13:00 12/21/20 Potassium Level 3.7 mmol/L (3.5-5.1) 12/21/20 13:00 12/21/20 Chloride Level 103 mmol/L (98-107) 12/21/20 13:00 12/21/20 Carbon Dioxide Level 25.9 mmol/L (21.0-32.0) 12/21/20 13:00 12/21/20 Blood Urea Nitrogen 16 mg/dL (7-18) 12/21/20 13:00 12/21/20 Creatinine 0.9 mg/dL (0.55-1.02) 12/21/20 13:00 12/21/20 Magnesium Level 2.2 mg/dL (1.8-2.4) 12/21/20 13:00 12/21/20 Calcium Level 9.1 mg/dL (8.5-10.1) 12/21/20 13:00 12/21/20 Albumin 3.6 g/dL (3.4-5.0) 12/21/20 13:00 12/21/20 Glucose Level 88 mg/dL (74-106) 12/21/20 13:00 12/21/20 C-Reactive Protein 0.21 mg/dL (0.0-0.3) 12/27/20 12:31 12/27/20 Liver Function Panel: Alanine Aminotransferase (ALT/SGPT) 23 U/L (14-59) 12/21/20 13:00 12/21/20 Aspartate Amino Transf (AST/SGOT) 30 U/L (15-37) 12/21/20 13:00 12/21/20 Coagulation Panel: No Data to Display Cardiac Panel: No Data to Display Arterial Blood Gas: No Data to Display Venous Blood Gas: Venous Blood Lactate 0.9 mmol/L (0.6-1.4) 12/21/20 13:00 12/21/20 Pancreas Panel: Lipase 104 U/L (73-393) 12/21/20 13:00 12/21/20 Thyroid Panel: Thyroid Stimulating Hormone (TSH) 1.96 uIU/mL (0.36-3.74) 11/22/20 08:40 11/22/20 Infectious Disease: Coronavirus (COVID-19)(PCR) Negative (Negative) 01/30/21 08:34 01/30/21 Coronavirus 2019 Source Nasal/nares 01/30/21 08:34 01/30/21 Neisseria gonorrhoeae DNA Probe SEE COMMENTS 04/02/12 12:00 04/02/12 Blood Cultures: No Data to Display Toxicology Panel: No Data to Display Anesthesia Assessment and Plan Anesthesia History Personal History: No History of Anesthesia Complications and PONV (None with last colonoscopy) Family History: No Family History of Anesthesia Complications Exercise Tolerance Exercise Tolerance: Metabolic Equivalents>4 Pertinent Negatives Pertinent Negatives: No Symptoms of GERD (Controlled with diet) Cardiac & Pulmonary Exam Cardiac Exam: Normal S1/S2 Heart Sounds Pulmonary Exam: Clear Bilateral Breath Sounds Airway Exam Known Difficult Airway: No Mallampati Class: 2 Mouth Opening: Normal (> 3cm) Thyromental Distance: Less than 3 cm Neck Range of Motion: Full ROM Neck Circumference: Normal Teeth Condition: Normal Dentition, Removable Dentures/Plates Upper (Full) and Removable Dentures/Plates Lower (Partial) Airway Comment:: remaining lower teeth intact per patient ASA Classification ASA Score: ASA 2 Emergency Case?: No NPO Status NPO Status: NPO Clears >2 hours, Solids >8 hours Anesthesia Plan Anesthesia Technique: General Anesthesia Airway Planned: Natural Airway Monitors Used: Standard Monitors
[2021-02-01 07:14] VITALS: BMI 31.7
--- NOTE | 2021-02-01 07:55 | BOWEL_PTH ---
PATIENT: Maya Kitchen LOC: [facility] U#:[id number] AGE/SX: 60/F ROOM: RE02/01/[address]: Mariah Palmer : 1960 BED: DIS: 02/01/2021 SPEC #: [id number] RECD: 02/01/21 12:49 STATUS: SERGO REMelvin #: [id number] NICHOLAS: 02/01/21 07:[address]: Mariah Palmer DEPT: Surgical Specimen RECD BY: Tea Sigala ENTERED: 02/01/21 12:51 SP TYPE: Bowel OTHR DR: Sierra Forbes Tissues: 1 - BIOPSY BOWEL Procedures: GROSS AND MICRO LEVEL 4 Comments: [id number]
[2021-02-01 08:05] VITALS: BP 114/63; PULSE 65; RESP 16; TEMP 36.2; O2SAT 100
--- NOTE | 2021-02-01 08:07 | W.ANESPOSTOP ---
Postoperative Evaluation Date, Time and Location Date Performed: 02/01/21 Time Performed: 08:07 Patient Location: Day Surgery Unit Vital Signs Most Recent Imported Vital Signs: Most Recent Vital Signs Temp Pulse Resp BP Pulse Ox 36.5 C 62 18 133/74 100 02/01/21 06:15 02/01/21 06:15 02/01/21 06:15 02/01/21 06:15 02/01/21 06:15 Most Recent Manually Entered Vital Signs: Adult Blood Pressure: 114/63 Heart Rate: 68 Respirations: 17 Oxygen Saturation (%): 97 Temperature (C): 36.3 C Pain Score (0-10 Scale): 0 Assessment Mental Status: Awake (Alert & Oriented to Patient Baseline) Airway and Respiratory Function: Patent airway with normal (patient baseline) respiratory exam Cardiovascular Function: Hemodynamically Stable Hydration Status: Adequately Hydrated Nausea & Vomiting: No Nausea or Vomiting Pain: Pt. Denies Any Pain Peripheral Nerve Block: Patient did not receive a nerve block
[2021-02-01 08:08] VITALS: BP 114/63; PULSE 68; RESP 17; TEMPC 36.3; O2SAT 97
--- NOTE | 2021-02-01 08:08 | PDOC.DSDIS_ITS ---
Discharge Plan Disposition Patient Disposition: HOME Condition: Good Discharge Details Reason For Visit: colomn scope Attending Provider: Mariah Palmer Primary Care Provider: Sierra Forbes Home Meds and New Rx's Prescriptions: Continued hydrocortisone 2.5 % cream with perineal applicator 1 applic [place] BID-QID PRN (Reason: itching/pain) Qty: 30 RF: 12 cyclobenzaprine 10 mg tablet 10 mg PO DAILY PRNRF: 0 clobetasol 0.05 % cream 0.05 applic TOPICAL PRN PRNRF: 0 levothyroxine 125 mcg tablet 125 mcg PO DAILY RF: 0 Bio-K plus 50 billion cell capsule,delayed release(DR/EC) 1 cap PO DAILY Qty: 30 RF: 0 Discontinued polyethylene glycol 3350 17 gram/dose powder 238 g PO ONCE Qty: 238 RF: 0 bisacodyl [Dulcolax (bisacodyl)] 5 mg tablet,delayed release (DR/EC) 5 mg PO ONCE Qty: 4 RF: 0 Discharge Instructions Additional Instructions: DSU Colonoscopy Post- Op Instructions Instructions for Everyone who is given Anesthesia: For your safety, please do the following for the next twenty-four (24) hours: *Do Not operate a motor vehicle (car, truck, motorcycle, etc.) *Do Not drink alcoholic beverages or use any recreational drugs for the first 24 hours or while taking pain medications. The medications in your body may have a reaction that can be dangerous. *Do Not make any important decisions or sign any important papers. Findings: severe diverticula -high fiber diet/avoid straining to move your bowels Follow up: repeat in 10 yrs time 1. No lifting over 20 pounds or strenuous activity for the first 24 hours after your procedure. After 24 hours there are no restrictions on your activity but you may feel fatigued for a few days. 2. After you arrive home you may have a light meal and return to your normal diet as you can tolerate it without feeling sick to your stomach. 3. You may have a bloated, gaseous feeling in your belly (abdomen) after a colonoscopy. Passing gas and belching will help. Walking or lying down on your left side with your knees flexed may relieve the discomfort. Call the office at [phone] (Office) or [phone] (Hospital) right away if you notice any of the following: a.Vomiting of blood or ?coffee ground stools?. b.Rectal bleeding 1Tbsp, blood clots or continuous bleeding. c.Severe belly (abdominal) pain. d.A hard distended belly (abdomen) and an inability to pass gas. 4. Please don?t expect to have a normal BM (bowel movement) for 2-3 days after your procedure. 5. If there are questions regarding the findings of your procedure, please contact your doctor 6. If you are unable to contact your doctor with a problem, contact the hospital at [phone]. 7. Continue all your regular medications unless directed otherwise. I understand the above instructions and have no questions. Signature of Patient or Adult Escort Name of Responsible Adult Escort Signature of Nurse Date/Time Activity:: see above Diet:: small light meals today Discharge Orders Discharge Orders: Discharge Order (Routine); Ordered 01/31/21 Ordered By: Mariah Palmer DS: Diagnosis Discharge Diagnosis (1) Diverticulitis of large intestine with perforation: Status: Acute (2) Diverticula of colon: Status: Acute (3) Hypothyroidism: Status: Acute
--- NOTE | 2021-02-01 08:17 | W.COLOREPORT ---
Date of service: 02/01/21 Time of Service: 08:17 Colonoscopy Report Date of procedure: 02/01/21 Disposition: same day Prep: Miralax/Dulcolax Retraction Time: 9 Procedure Description: After informed consent was obtained the patient was taken to the procedure room and placed in a left decubitous position. Monitors were applied and a time out was done. The patients name, date of , procedure, allergies to medications and metal in their body was reviewed. The patient was then sedated. Once sedated and comfortable a rectal exam was done. External exam : ext hemorhoids Internal exam revealed a normal sphincter tone and no palpable masses. The scope was then introduced and retrofelexed. grade II internal hemorrhoids were identified. The scope was then advanced to the cecum w/out difficulty. The TI and appendiceal orifice were identified. The prep was good. The scope was then slowly retracted over 9 minutes back into the rectum. Pt had a prominent I-C valve and Bx was done w/ cold forcpt. she does have severe diverticular disease confined to the sigmoid colon. She has multiple very large very numerous pockets. There is no signs of any active bleeding or infection. There is no AVMs or polyps apparent. The scope was removed and the patient was woken up and taken back to Same day surgery in stable condition. The patient tolerated the procedure well and there were no immediate complications. Follow up: The patient should follow up in 10 years unless they develop changes in bowel habits or other new gastrointestinal complaints.
== END 2021-02-01 09:00 | disposition home or self-care (01) ==
PROVIDERS: PCP Nurse Practitioner; Visit Provider Surgery
PROC: 0DJD8ZZ Inspection of Lower Intestinal Tract, Via Natural or Artificial Opening Endoscopic (ICD-10-PCS; CPT 45378; principal; 2021-02-01 07:30)
DX: K57.30 Diverticulosis of large intestine without perforation or abscess without bleeding (principal); E03.9 Hypothyroidism, unspecified; K29.70 Gastritis, unspecified, without bleeding; K64.1 Second degree hemorrhoids; K56.7 Ileus, unspecified
CPT/HCPCS: 45380; 88305; J2001; J2405

== ENCOUNTER 2021-05-06 16:01 | Outpatient (REF) | payer OTHER, SELFPAY ==
[2021-05-06 20:40] LABS: TSH (W/Ref FT4) 0.02 uIU/mL (0.36-3.74)
[2021-05-06 21:11] LABS: FREE T4 1.29 ng/dL (0.76-1.46)
== END 2021-05-06 16:02 | disposition home or self-care (01) ==
LOC: NCHCN 16:01
PROVIDERS: PCP Nurse Practitioner; Visit Provider Nurse Practitioner
DX: E03.9 Hypothyroidism, unspecified (principal)
CPT/HCPCS: 84439; 84443

== ENCOUNTER 2021-05-10 03:12 | Outpatient (CLI) | payer OTHER, SELFPAY ==
--- NOTE | 2021-05-10 | DI.MAMMO_ITS ---
Exam(s) MAMMO SCREENING EXAM: MAMMO SCREENING CLINICAL HISTORY: SCREENING,Z12.39. TECHNIQUE: Bilateral full field digital CC and MLO mammographic images were obtained with 3D tomosyn thesis and utilizing computer aided detection (CAD). COMPARISON: Prior mammogram performed March 2019, this being the only prior in our PACS. Apparently wrist sister was diagnosed with breast cancer at age 67. FINDINGS: There are no new spiculated masses nor malignant appearing microcalcification groups. There is no significant architectural distortion nor skin thickening-retraction. IMPRESSION: No radiographic evidence of malignancy. BI-RADS Category 1 - Negative Breast Density - Category B - Scattered areas of fibroglandular density Breast density Category C or D implies that the patient has dense breast tissue. Dense breast tissue can make it harder to find cancer on a mammogram. Dense breast tissue is also associated with an incr eased risk of breast cancer. This information about the result of the mammogram report was provided to the patient to raise their awareness. Use this report when you speak with the patient about their risks for breast cancer, which includes their family history. At that time, you may recommend additional screening tests (Ultrasoun d or MRI) as these tests may add significant information. A negative radiographic report should not delay biopsy if a dominant or clinically suspicious mass is present. Up to ten percent of cancers are not identified on mammography. A negative report may reinforce clinical impression. Adenosis and dense breasts may obscure an underlying neoplasm. False positive reports average 6 to 10%. Patient will receive a letter notifying them of these results.
== END 2021-05-10 03:32 ==
PROVIDERS: PCP Nurse Practitioner; Visit Provider Nurse Practitioner
DX: Z12.31 Encounter for screening mammogram for malignant neoplasm of breast (principal); Z80.3 Family history of malignant neoplasm of breast
CPT/HCPCS: 77063; 77067

== ENCOUNTER 2021-06-05 10:29 | Outpatient (REF) | payer OTHER, SELFPAY ==
[2021-06-05 15:51] LABS: HCT 39.9 % (36.0-46.0); MCH 28.6 pg (27.0-33.0); MCHC 32.6 % (32.0-36.0); MCV 87.7 fL (80-95); MPV 10.9 fL (8.0-11.0); Platelet Count 228 10^3/uL (130-400); RBC 4.55 10^6/uL (3.93-5.22); RDW-SD 41.8 fL; WBC 5.54 10^3/uL (4.4-10.8)
[2021-06-05 16:00] LABS: ALT 24 U/L (14-59); AST 22 U/L (15-37); Albumin 3.7 g/dL (3.4-5.0); Alkaline Phosphatase 115 U/L (46-116); Anion Gap 7.5 mmol/L (3-11); BUN 19 mg/dL (7-18); Bilirubin, Total 0.2 mg/dL (0.2-1.0); C-Reactive Protein 0.35 mg/dL (0.0-0.3); CO2 27.5 mmol/L (21.0-32.0); Calcium 8.8 mg/dL (8.5-10.1); Chloride 106 mmol/L (98-107); Estimated GFR 56.37 (mL/min/1.73m2); Glucose 88 mg/dL (74-106); Potassium 4.6 mmol/L (3.5-5.1); Sodium 141 mmol/L (136-145); Total Protein 7.1 g/dL (6.4-8.2)
== END 2021-06-05 10:30 | disposition home or self-care (01) ==
LOC: NCHCN 10:29
PROVIDERS: PCP Nurse Practitioner; Referring Provider Nurse Practitioner; Visit Provider Nurse Practitioner
DX: R10.9 Unspecified abdominal pain (principal)
CPT/HCPCS: 80053; 85027; 86140

== ENCOUNTER 2021-06-11 02:11 | Outpatient (CLI) | payer OTHER, SELFPAY ==
[2021-06-11] MEDS: Omnipaque 350 MG/ML 50 ML BTL IJ (14:00)
[2021-06-11] MEDS: Omnipaque 350 MG/ML 100 ML BTL IJ (15:11)
--- NOTE | 2021-06-11 15:15 | DI.CT_ITS ---
Exam(s) CT ABDOMEN PELVIS W EXAM: CT ABDOMEN PELVIS W CLINICAL HISTORY: H/O DIVERTICULITIS,Z87.19,ABD PAIN,R10.9. TECHNIQUE: Imaging Protocol: Axial computed tomography images with coronal and sagittal reformatted images were created and reviewed CONTRAST MATERIAL: Intravenous: Omnipaque 350 Contrast volume:100 ml Oral: yes / COMPARISON: CT CT ABDOMEN PELVIS W from 12/21/2020 FINDINGS: ABDOMEN: Lung Bases: Normal where visualized. Liver: Normal density. No measurable mass. Gallbladder and biliary tract: No radiodense calculus or dilation. Pancreas: Normal density, no abnormal calcifications or inflammatory process. Spleen: Normal. Kidneys: Normal size, contour and axis. No radiodense stones or obstructive uropathy. No masses seen. Adrenal glands: No masses seen. Abdominal Aorta: Abdominal portion non-dilated. PELVIS: Bladder: No gross wall thickening. No calculi.No focal mass. Bowel: Prominent diverticulosis particularly of the sigmoid. No diverticulitis, free air or abscess. No obstruction or bowel wall thickening. Appendix normal. Peritoneal cavity: No ascites, collection or mesenteric inflammatory response. Bones: Degenerative changes greatest at L4-5. Reproductive organs: Status post hysterectomy. Lymph nodes: Unremarkable. Impression: Diverticulosis. No evidence of diverticulitis or other acute abnormality. RADIATION DOSE DELIVERED: 980.13mGy.cm Total DLP DATA REPOSITORY: All CT scans at this facility are submitted to the National Radiology Data Registry (NRDR) Dose Index Registry (DIR) with the [employer] (ACR). RADIATION OPTIMIZATION: All CT scans at this facility use at least one of these dose optimization te chniques: automated exposure control; mA and/or kV adjustment per patient size (includes targeted exa ms where dose is matched to clinical indication); or iterative reconstruction.
== END 2021-06-11 02:31 ==
PROVIDERS: PCP Nurse Practitioner; Visit Provider Nurse Practitioner
DX: R10.9 Unspecified abdominal pain (principal); Z87.19 Personal history of other diseases of the digestive system; K57.30 Diverticulosis of large intestine without perforation or abscess without bleeding
CPT/HCPCS: 74177; J3490; Q9967

== ENCOUNTER 2021-08-23 08:41 | Outpatient (REF) | payer OTHER, SELFPAY ==
[2021-08-23 15:01] LABS: TSH (W/Ref FT4) 0.23 uIU/mL (0.36-3.74)
[2021-08-23 16:11] LABS: FREE T4 1.31 ng/dL (0.76-1.46)
== END 2021-08-23 08:42 | disposition home or self-care (01) ==
LOC: NCHCN 08:41
PROVIDERS: PCP Nurse Practitioner; Visit Provider Nurse Practitioner
DX: E03.9 Hypothyroidism, unspecified (principal)
CPT/HCPCS: 84439; 84443

== ENCOUNTER 2022-02-21 17:33 | Outpatient (REF) | payer OTHER, SELFPAY ==
[2022-02-21 15:38] LABS: HCT 41.3 % (36.0-46.0); HGB 13.4 g/dL (11.2-15.7); MCH 29.1 pg (27.0-33.0); MCHC 32.4 % (32.0-36.0); MCV 90 fL (80-95); MPV 10.5 fL (8.0-11.0); Platelet Count 215 10^3/uL (130-400); RDW 12.9 % (11.7-14.6); RDW-SD 42.6 fL; WBC 5.36 10^3/uL (4.4-10.8)
[2022-02-21 16:46] LABS: Anion Gap 11.3 mmol/L (3-11); BUN 16 mg/dL (7-18); CO2 24.7 mmol/L (21.0-32.0); CREATININE 0.9 mg/dL (0.55-1.02); Calcium 9.2 mg/dL (8.5-10.1); Chloride 109 mmol/L (98-107); Glucose 105 mg/dL (74-106); Potassium 4.6 mmol/L (3.5-5.1); Sodium 145 mmol/L (136-145); TSH 0.26 uIU/mL (0.36-3.74)
== END 2022-02-21 17:34 | disposition home or self-care (01) ==
LOC: NCHCN 17:33
PROVIDERS: PCP Nurse Practitioner; Visit Provider Nurse Practitioner Family
DX: Z00.00 Encounter for general adult medical examination without abnormal findings (principal); E03.9 Hypothyroidism, unspecified; R53.83 Other fatigue
CPT/HCPCS: 80048; 85027; 84443

== ENCOUNTER 2022-05-01 17:01 | Outpatient (REF) | payer OTHER, SELFPAY ==
[2022-05-01 18:22] LABS: TSH (W/Ref FT4) 1.75 uIU/mL (0.36-3.74)
== END 2022-05-01 17:02 | disposition home or self-care (01) ==
LOC: NCHCN 17:01
PROVIDERS: PCP Nurse Practitioner; Visit Provider Nurse Practitioner Family
DX: E03.9 Hypothyroidism, unspecified (principal)
CPT/HCPCS: 84443

== ENCOUNTER 2022-11-12 19:29 | Outpatient (REF) | payer OTHER, SELFPAY ==
[2022-11-12 19:56] LABS: TSH (W/Ref FT4) 0.47 uIU/mL (0.36-3.74)
== END 2022-11-12 19:30 | disposition home or self-care (01) ==
LOC: NCHCN 19:29
PROVIDERS: PCP Nurse Practitioner; Visit Provider Nurse Practitioner Family
DX: E03.9 Hypothyroidism, unspecified (principal); M54.2 Cervicalgia
CPT/HCPCS: 84443

== ENCOUNTER 2022-12-01 11:22 | Emergency (ER) | payer OTHER, SELFPAY ==
[2022-12-01 11:29] VITALS: BP 150/83; PULSE 95; RESP 18; TEMP 36.7; O2SAT 97
[2022-12-01 13:15] LABS: Abs Immature Grans 0.02 10^3/uL (0.0-0.06); Absolute Basophil Count 0.05 10^3/uL (0.0-0.2); Absolute Eosinophil Count 0.05 10^3/uL (0.0-0.7); Absolute Lymphocyte Count 1.96 10^3/uL (1.2-3.4); Absolute Monocyte Count 0.61 10^3/uL (0.1-0.8); Absolute Neutrophil Count 4.42 10^3/uL (1.2-6.7); Basophils % 0.7; Eosinophils % 0.7; HGB 13.9 g/dL (11.2-15.7); Immature Grans % 0.3; Lymphocytes % 27.6; MCH 28.7 pg (27.0-33.0); MCHC 33.1 % (32.0-36.0); MCV 87 fL (80-95); MPV 9.8 fL (8.0-11.0); Monocytes % 8.6; Neutrophils % 62.1; Platelet Count 238 10^3/uL (130-400); RBC 4.85 10^6/uL (3.93-5.22); RDW 13.2 % (11.7-14.6); RDW-SD 41.8 fL; WBC 7.11 10^3/uL (4.4-10.8)
[2022-12-01] MEDS: Ketorolac 30 MG/ML VIAL IVP (13:28)
[2022-12-01 13:32] LABS: ALT 12 U/L (14-59); AST 13 U/L (15-37); Alkaline Phosphatase 99 U/L (46-116); Anion Gap 9.1 mmol/L (3-11); BUN 14 mg/dL (7-18); Bilirubin, Total 0.3 mg/dL (0.2-1.0); CO2 28.9 mmol/L (21.0-32.0); CREATININE 0.9 mg/dL (0.55-1.02); Calcium 9.3 mg/dL (8.5-10.1); Chloride 105 mmol/L (98-107); Estimated GFR 72.28 (mL/min/1.73m2); Glucose 112 mg/dL (74-106); Lipase 35 U/L (16-77); Magnesium 2.2 mg/dL (1.8-2.4); Potassium 3.6 mmol/L (3.5-5.1); Sodium 143 mmol/L (136-145); Total Protein 7.9 g/dL (6.4-8.2)
[2022-12-01 13:33] LABS: Bilirubin Negative (Negative); Blood Negative (Negative); Clarity Clear (Clear); Glucose Negative (Negative); Ketones Negative (Negative); Leukocyte Esterase Negative (Negative); Nitrite Negative (Negative); Specific Gravity >= 1.030 (1.005-1.025); Urobilinogen 0.2 mg/dL (Up to 0.2); pH 5.5 (5-8)
--- NOTE | 2022-12-01 13:40 | ED.GENADUL_ITS ---
Discharge Plan Disposition Patient Disposition: Home Condition: Stable Discharge Details Clinical Impression: Acute left-sided low back pain, Shingles Primary Care Provider: Sierra Forbes ED Provider: John Jones Home Meds and New Rx's Prescriptions: New valacyclovir [Valtrex] 1 gram tablet 1,000 mg PO TID Qty: 20 0RF prednisone 10 mg tablet See Rx Instructions .ROUTE .COMPLEX Qty: 26 0RF Rx Instructions: Day 1: 60 mg PO daily Day 2-3: 40 mg PO daily Day 4-5: 30 mg PO daily Day 6-7: 20 mg PO daily Day 8-9: 10 mg PO daily Continued hydrocortisone 2.5 % cream with perineal applicator 1 applic [place] BID-QID PRN (Reason: itching/pain) Qty: 30 12RF cyclobenzaprine 10 mg tablet 10 mg PO DAILY PRN clobetasol 0.05 % cream 0.05 applic TOPICAL PRN PRN levothyroxine 125 mcg tablet 88 mcg PO DAILY Discharge Instructions Instructions: Shingles (ED) Additional Instructions: I suspect your pain is related to early shingles outbreak. Please take medication as prescribed. Should pain persist or worsen or you develop any other new or concerning symptoms, please return immediately to the emergency department. Please contact your primary care physician to arrange follow-up. Referrals: Sierra Forbes [Primary Care Provider] - Discharge Data Discharge Date/Time-TO BE ENTERED AT DEPARTURE: 12/01/22 13:59 Medical Decision Making 62-year-old female here with right low back, flank and lower abdominal discomfort that started 3 days ago and has persisted. Pain feels like a burning discomfort. She has a small pustular rash on her low back. I suspect patient has shingles. Plan to treat with Valtrex and have her follow-up with a primary care physician. Usual customary discharge instructions were reviewed. HPI General Mode of arrival: ambulatory . Date/Time Provider Initiated Documentation: 12/01/22 11:56 . Limitations to Documentation: no limitations . Information obtained by: patient . HPI Narrative: 62-year-old female presents with right-sided lower abdominal pain. Pain starts in her flank and radiates to her abdomen. She also notes some discomfort in her low back on the right side. Patient denies associated rash. No fevers. No nausea or vomiting. No urinary symptoms. Pain described as burning sharp. Related Data Home Medications Medication Instructions Recorded Confirmed clobetasol 0.05 % topical cream 0.05 applic topical PRN PRN 11/10/20 12/01/22 cyclobenzaprine 10 mg tablet 10 mg PO DAILY PRN 11/10/20 12/01/22 levothyroxine 125 mcg tablet 88 mcg PO DAILY 11/10/20 02/01/21 hydrocortisone 2.5 % topical cream 1 applic GA BID-QID PRN 11/22/20 12/01/22 with perineal applicator itching/pain #30 grams prednisone 10 mg tablet See Rx Instructions .Route 12/01/22 .COMPLEX #26 tabs valacyclovir 1 gram tablet 1,000 mg PO TID #20 tabs 12/01/22 (Valtrex) Previous Rx's Medication Instructions Recorded hydrocortisone 2.5 % topical cream 1 applic GA BID-QID PRN 11/22/20 with perineal applicator itching/pain #30 grams prednisone 10 mg tablet See Rx Instructions .Route 12/01/22 .COMPLEX #26 tabs valacyclovir 1 gram tablet 1,000 mg PO TID #20 tabs 12/01/22 (Valtrex) Allergies Allergy/AdvReac Type Severity Reaction Status Date / Time amoxicillin [Amoxicillin] Allergy Intermediate Skin Rash Unverified 12/01/22 11:34 pantoprazole sodium Allergy Intermediate Dizziness/L Unverified 12/01/22 11:34 [From Protonix] ightheade sulfamethoxazole Allergy Intermediate Skin Rash Unverified 12/01/22 11:34 [From Bactrim] trimethoprim [From Bactrim] Allergy Intermediate Skin Rash Unverified 12/01/22 11:34 latex AdvReac local rash Unverified 12/01/22 11:34 General Stated Complaint: Abd Prob AAKASH: 3 Review of Systems Constitutional Constitutional: Denies fever(s) Gastrointestinal Gastrointestinal: Reports as per HPI PFSH All Active Problems Acute left-sided low back pain (Acute) Shingles (Acute) Diverticulitis of large intestine with perforation (Acute) Diverticulitis (Chronic) Diverticula of colon (Acute) Gastritis (Acute) Hypothyroidism (Acute) Medical History Diverticulosis Heart burn Surgical History Arthroplasty of knee error. no total knee H/O esophagogastroduodenoscopy (~09/18/14) History of arthroscopic knee surgery History of colonoscopy (~02/01/21) S/P colonoscopy (~09/18/14) [place]- Diverticulosis Social History Smoking/Tobacco Use Status: Never Smoking risk assessment performed?: Yes Alcohol Intake: current Alcohol Intake frequency: holidays/special occasions only Drug use: Never Substance use type: does not use Current gender identity: female Do you feel safe at home: Yes Do you feel safe in your relationship?: Yes Exam Const General: cooperative and no acute distress HENMT Mouth: moist mucous membranes Eyes Conjunctivae: normal conjunctivae Sclera: normal sclerae Resp Auscultation: clear to auscultation bilaterally, no rales, no rhonchi and no wheezes Cardio Rate: regular rate and not tachycardic Rhythm: regular rhythm GI Inspection: non-distended Palpation: soft, not firm, no guarding, no masses, not rigid and tender (Focal tenderness along the right flank with no palpation elsewhere) Auscultation: normal bowel sounds Skin Rashes: rashes noted (Small pustular rash right low back) Neuro General: patient alert, patient awake, patient oriented x3 and tone normal Extrem General: no edema Psych Appearance: grossly normal Mental Status: mental status grossly normal Course Vital Signs Vital signs: Vital Signs Temperature 36.7 C 12/01/22 11:29 Pulse 95 H 12/01/22 11:29 Respiratory Rate 18 12/01/22 11:29 Blood Pressure 150/83 H 12/01/22 11:29 Pulse Oximetry 97 12/01/22 11:29 Temperature 36.7 C 12/01/22 11:29 Pulse 95 H 12/01/22 11:29 Respiratory Rate 18 12/01/22 11:29 Respiratory Effort Normal 12/01/22 11:35 Blood Pressure 150/83 H 12/01/22 11:29 Blood Pressure Position Sitting 12/01/22 11:29 Pulse Oximetry 97 12/01/22 11:29 Oxygen Delivery Method Room Air 12/01/22 11:29 Oxygen Flow Rate 0 12/01/22 11:29 Lab/Test Results Lab/Test Results: Laboratory Tests Range/Units 12/01/22 12/01/22 12/01/22 12:58 12:58 13:06 WBC (4.4-10.8) 10^3/uL 7.11 RBC (3.93-5.22) 10^6/uL 4.85 Hgb (11.2-15.7) g/dL 13.9 Hct (36.0-46.0) % 42.0 MCV (80-95) fL 87 MCH (27.0-33.0) pg 28.7 MCHC (32.0-36.0) % 33.1 RDW (11.7-14.6) % 13.2 Plt Count (130-400) 10^3/uL 238 MPV (8.0-11.0) fL 9.8 Immature Gran % 0.3 Neutrophils % 62.1 Lymphocytes % 27.6 Monocytes % 8.6 Eosinophils % 0.7 Basophils % 0.7 Nucleated RBC % (0.0-0.3) % 0.0 Absolute Neutrophils (1.2-6.7) 10^3/uL 4.42 Absolute Lymphocytes (1.2-3.4) 10^3/uL 1.96 Absolute Monocytes (0.1-0.8) 10^3/uL 0.61 Absolute Eosinophils (0.0-0.7) 10^3/uL 0.05 Absolute Basophils (0.0-0.2) 10^3/uL 0.05 Sodium (136-145) mmol/L 143 Potassium (3.5-5.1) mmol/L 3.6 Chloride (98-107) mmol/L 105 Carbon Dioxide (21.0-32.0) mmol/L 28.9 Anion Gap (3-11) mmol/L 9.1 BUN (7-18) mg/dL 14 Creatinine (0.55-1.02) mg/dL 0.9 Est GFR (CKD-EPI 2020) (mL/min/1.73m2) 72.28 Glucose (74-106) mg/dL 112 H Calcium (8.5-10.1) mg/dL 9.3 Magnesium (1.8-2.4) mg/dL 2.2 Total Bilirubin (0.2-1.0) mg/dL 0.3 AST (15-37) U/L 13 L ALT (14-59) U/L 12 L Alkaline Phosphatase (46-116) U/L 99 Total Protein (6.4-8.2) g/dL 7.9 Albumin (3.4-5.0) g/dL 4.0 Lipase (16-77) U/L 35 Urine Color (Yellow) Yellow Urine Clarity (Clear) Clear Urine pH (5-8) 5.5 Ur Specific [place] (1.005-1.025) >= 1.030 H Urine Protein (Negative) mg/dL Negative Urine Ketones (Negative) mg/dL Negative Urine Blood (Negative) Negative Urine Nitrite (Negative) Negative Urine Bilirubin (Negative) Negative Urine Urobilinogen (Up to 0.2) mg/dL 0.2 Ur Leukocyte Esterase (Negative) Negative Urine Glucose (Negative) mg/dL Negative
[2022-12-01] MEDS: valACYclovir 1,000 MG TAB 1000 MG PO (13:47)
[2022-12-01 13:53] VITALS: BP 150/83; PULSE 95; RESP 18; TEMP 36.7; O2SAT 97
[2022-12-01] MEDS: predniSONE 20 MG TAB 60 MG PO (13:59)
== END 2022-12-01 13:59 | disposition home or self-care (01) ==
PROVIDERS: Emergency Provider Student in an Organized Health Care Education/Training Program; PCP Nurse Practitioner
DX: B02.9 Zoster without complications (principal); M54.59 Other low back pain
CPT/HCPCS: 36415; 80053; 83690; 96374; 99284; 81003; 83735; 85025; 99283; J1885; J7512

== ENCOUNTER 2022-12-12 00:12 | Outpatient (CLI) | payer OTHER, SELFPAY ==
--- NOTE | 2022-12-12 15:17 | DI.MAMMO_ITS ---
Exam(s) MAMMO SCREENING EXAM: MAMMO SCREENING CLINICAL HISTORY: SCREENING, Z12.39, FAM HX BREAST CA, Z80.3 TECHNIQUE: Bilateral full field digital CC and MLO mammographic images were obtained with 3D tomosyn thesis and utilizing computer aided detection (CAD). COMPARISON: Available for comparison. FINDINGS: Masses/Architectural Distortion: None seen. Microcalcifications: No suspicious pleomorphic-type are seen. Skin Thickening/Nipple Retraction: None. IMPRESSION: 1. No significant interval change with no specific features of malignancy noted. 2. Unless there is more urgent need, screening mammography is recommended, as per [employer] guidelines. BI-RADS Category 1 - Negative Breast Density - Category B - Scattered areas of fibroglandular density Breast density category C or D implies that the patient has dense breast tissue. Dense breast tissue is very common and is not abnormal but dense breast tissue can make it harder to find cancer on a ma mmogram. Also, dense breast tissue may increase their breast cancer risk. This information about the result of the mammogram report was provided to the patient to raise their awareness. Use this report when you speak with the patient about their risks for breast cancer, which includes their family hist ory. At that time, you may recommend for more screening tests (Ultrasound or MRI) as they might be us eful based on their risk. A negative radiographic report should not delay biopsy if a dominant or clinically suspicious mass is present. Up to ten percent of cancers are not identified on mammography. A negative report may reinforce clinical impression. Adenosis and dense breasts may obscure an underlying neoplasm. False positive reports average 6 to 10%. Patient will receive a letter notifying them of these results.
== END 2022-12-12 00:32 ==
LOC: DI 00:13
PROVIDERS: PCP Nurse Practitioner; Visit Provider Nurse Practitioner Family
DX: Z12.31 Encounter for screening mammogram for malignant neoplasm of breast (principal); Z80.3 Family history of malignant neoplasm of breast
CPT/HCPCS: 77063; 77067

== ENCOUNTER 2023-03-30 17:42 | Outpatient (REF) | payer OTHER, SELFPAY ==
[2023-03-30 15:18] LABS: HCT 41.1 % (36.0-46.0); HGB 13.8 g/dL (11.2-15.7); MCH 28.9 pg (27.0-33.0); MCHC 33.6 % (32.0-36.0); MCV 86 fL (80-95); MPV 10.6 fL (8.0-11.0); Platelet Count 224 10^3/uL (130-400); RBC 4.77 10^6/uL (3.93-5.22); RDW 13.1 % (11.7-14.6); RDW-SD 41.2 fL; WBC 6.06 10^3/uL (4.4-10.8)
[2023-03-30 15:51] LABS: BUN 16 mg/dL (7-18); CREATININE 0.9 mg/dL (0.55-1.02); Calcium 8.6 mg/dL (8.5-10.1); Cholesterol 302 mg/dL (<200); Estimated GFR 72.28 (mL/min/1.73m2); Glucose 95 mg/dL (74-106); Triglyceride 464 mg/dL (<150)
[2023-03-30 15:52] LABS: ALT 20 U/L (14-59); AST 25 U/L (15-37); Albumin 3.8 g/dL (3.4-5.0); Alkaline Phosphatase 100 U/L (46-116); Anion Gap 10.8 mmol/L (3-11); Bilirubin, Total 0.3 mg/dL (0.2-1.0); CO2 24.2 mmol/L (21.0-32.0); Chloride 105 mmol/L (98-107); HDL Cholesterol 52 mg/dL (40-60); Sodium 140 mmol/L (136-145); TSH (W/Ref FT4) 1.31 uIU/mL (0.36-3.74); Total Protein 7.3 g/dL (6.4-8.2)
[2023-03-30 16:25] LABS: LDL CHOLESTEROL 174 mg/dL (<100)
== END 2023-03-30 17:43 | disposition home or self-care (01) ==
LOC: NCHCN 17:42
PROVIDERS: PCP Nurse Practitioner; Visit Provider Nurse Practitioner Family
DX: Z00.00 Encounter for general adult medical examination without abnormal findings (principal); E78.5 Hyperlipidemia, unspecified; E03.9 Hypothyroidism, unspecified; M72.2 Plantar fascial fibromatosis
CPT/HCPCS: 80053; 80061; 83721; 85027; 84443

== ENCOUNTER → 2023-12-16 11:52 | Outpatient (CLI) | payer OTHER, SELFPAY ==
--- NOTE | 2023-12-16 | DI.RAD_ITS ---
Exam(s) XR KNEE RT 3V AP,LAT,SARAH EXAM: XR KNEE RT 3V AP,LAT,SARAH CLINICAL HISTORY: RT KNEE PAIN, M25.561. TECHNIQUE: 2D digital imaging was performed. Three views. COMPARISON: MR MRI R LOWER JOINT WO CONT from 12/07/2008 FINDINGS: Exam limited by artifact from overlying clothing. BONES: No acute fracture is present. No bony destructive lesion is seen. JOINTS: The knee is normally aligned. No joint effusion is seen. Mild spurring at the articular aspe ct of the patella. Femoral tibial joint spaces are maintained. SOFT TISSUE: Normal. IMPRESSION: Mild degenerative changes at the patellofemoral joint. DATA REPOSITORY: RADIATION DOSE DELIVERED:
== END ==
PROVIDERS: Visit Provider Physician Assistant Medical
DX: M17.11 Unilateral primary osteoarthritis, right knee (principal)
CPT/HCPCS: 73562

== ENCOUNTER 2024-10-10 17:56 | Outpatient (REF) | payer OTHER, SELFPAY ==
[2024-10-10 19:03] LABS: ALT 12 U/L (14-59); AST 19 U/L (15-37); Albumin 3.9 g/dL (3.4-5.0); Alkaline Phosphatase 101 U/L (46-116); BUN 15 mg/dL (7-18); Bilirubin, Total 0.25 mg/dL (0.2-1.0); Calcium 8.9 mg/dL (8.5-10.1); Calculated LDL 71 mg/dL (<100); Chloride 108 mmol/L (98-107); Cholesterol 199 mg/dL (<200); Estimated GFR 62.91 (mL/min/1.73m2); Glucose 101 mg/dL (74-106); HDL Cholesterol 61 mg/dL (40-60); Potassium 4.2 mmol/L (3.5-5.1); Sodium 143 mmol/L (136-145); TSH (W/Ref FT4) 5.11 uIU/mL (0.36-3.74); Total Protein 7.2 g/dL (6.4-8.2); Triglyceride 335 mg/dL (<150)
== END 2024-10-10 17:57 | disposition home or self-care (01) ==
LOC: NCHCN 17:56
PROVIDERS: PCP Nurse Practitioner Family; Visit Provider Nurse Practitioner Family
DX: E78.5 Hyperlipidemia, unspecified (principal); E03.9 Hypothyroidism, unspecified
CPT/HCPCS: 80053; 80061; 84439; 84443

== ENCOUNTER 2025-02-01 09:51 | Outpatient (REF) | payer OTHER, SELFPAY ==
[2025-02-01 16:19] LABS: TSH (W/Ref FT4) 2.06 uIU/mL (0.36-3.74)
[2025-02-02 19:23] LABS: Hepatitis C Ab w Rflx HCV PCR Negative (Negative)
== END 2025-02-01 09:52 | disposition home or self-care (01) ==
LOC: NCHCN 09:51
PROVIDERS: PCP Nurse Practitioner Family; Visit Provider Nurse Practitioner Family
DX: Z00.00 Encounter for general adult medical examination without abnormal findings (principal); E03.9 Hypothyroidism, unspecified
CPT/HCPCS: 86803; 84443

== ENCOUNTER 2025-02-27 02:59 | Outpatient (CLI) | payer OTHER, SELFPAY ==
--- NOTE | 2025-02-27 | DI.MRI_ITS ---
Exam(s) MR CERVICAL SPINE WO EXAM: MR CERVICAL SPINE WO CLINICAL HISTORY: Chronic cervicalgia w/worsening lt arm radiculopathy, M79.72, M54.2, G89.29 TECHNIQUE: Multiplanar multisequence MRI of the cervical spine was performed without intravenous con trast. COMPARISON: CR XR cervical spine comp 4-5V from 04/01/2019 FINDINGS: BONES: Vertebral body heights are maintained. Intervertebral disc spaces are normal. Alignment is nor mal. There is a small hemangioma in the T3 vertebral body. Degenerative endplate signal changes are seen at C4-C5 and C5-C6. There is disc space narrowing at C5-C6. CERVICAL CORD: Craniovertebral junction is unremarkable. The cervical cord is normal size and signal intensity. SOFT TISSUES: Unremarkable. C2-3: No disc herniation or bulge is identified. No significant central spinal canal or neural forami nal stenosis. C3-4: No disc herniation or bulge is identified. No significant central spinal canal or neural forami nal stenosis C4-5: There is mild prominence of the osteophyte disc complex. No central spinal canal stenosis is s een. There are hypertrophic changes of the left uncovertebral joint causing [id number] left ne ural foraminal stenosis. There is minimal right neural foraminal narrowing. C5-6: There is prominence of the osteophyte disc complex at this level. No significant central spina l canal stenosis is present. There are degenerative changes seen in the left uncovertebral joint. T his all contributes to cause moderate left neural foraminal stenosis. There is minimal right neural foraminal stenosis. C6-7: No disc herniation or bulge is identified. No significant central spinal canal or neural forami nal stenosis C7-T1: No disc herniation or bulge is identified. No significant central spinal canal or neural christopher inal stenosis IMPRESSION: Degenerative changes at C4-C5 and C5-C6. The findings result in [id number] left neural foramin al stenosis at C4-C5 and moderate left neural foraminal stenosis at C5-C6. Very minimal narrowing of the neural foramen is seen on the right at each of these levels. DATA REPOSITORY:
== END 2025-02-27 03:19 ==
LOC: DI 02:59
PROVIDERS: PCP Nurse Practitioner Family; Visit Provider Nurse Practitioner Family
DX: M79.2 Neuralgia and neuritis, unspecified (principal); M54.2 Cervicalgia
CPT/HCPCS: 72141

== ENCOUNTER 2025-04-25 03:27 | Outpatient (CLI) | payer OTHER, SELFPAY ==
--- NOTE | 2025-04-25 16:25 | DI.MAMMO_ITS ---
Exam(s) MAMMO SCREENING EXAM: MAMMO SCREENING CLINICAL HISTORY: SCREENING,Z12.31. TECHNIQUE: Bilateral full field digital CC and MLO mammographic images were obtained with 3D tomosynthesis and utilizing computer aided detection (CAD). COMPARISON: Prior mammograms were reviewed. FINDINGS: There has been no significant change in the appearance and distribution of the fibroglandular tissue. There are no new spiculated masses nor malignant appearing microcalcification groups. There is no significant architectural distortion nor skin thickening-retraction. IMPRESSION: No radiographic evidence of malignancy. BI-RADS Category 1 - Negative Breast Density - Category B - There are scattered areas of fibroglandular density. Breast density Category C or D implies that the patient has dense breast tissue. Dense breast tissue can make it harder to find cancer on a mammogram. Dense breast tissue is also associated with an increased risk of breast cancer. This information about the result of the mammogram report was provided to the patient to raise their awareness. Use this report when you speak with the patient about their risks for breast cancer, which includes their family history. At that time, you may recommend additional screening tests (Ultrasound or MRI) as these tests may add significant information. A negative radiographic report should not delay biopsy if a dominant or clinically suspicious mass is present. Up to ten percent of cancers are not identified on mammography. A negative report may reinforce clinical impression. Adenosis and dense breasts may obscure an underlying neoplasm. False positive reports average 6 to 10%. Patient will receive a letter notifying them of these results.
== END 2025-04-25 03:47 ==
PROVIDERS: PCP Nurse Practitioner Family; Visit Provider Nurse Practitioner Family
DX: Z12.31 Encounter for screening mammogram for malignant neoplasm of breast (principal); R92.323 Mammographic fibroglandular density, bilateral breasts
CPT/HCPCS: 77063; 77067